=== PATIENT | female | born 1940 | race Caucasian/White ===

== ENCOUNTER → 2017-10-20 | Outpatient (CLI) | payer MEDICARE, BC ==
[2017-10-20 17:35] LABS: Calcium 9.3 mg/dL (8.4-10.2)
== END | disposition home or self-care (01) ==
LOC: LABMAIN 14:50
PROVIDERS: ATTEND Internal Medicine Nephrology
DX: N18.3 Chronic kidney disease, stage 3 (moderate) (principal)
CPT/HCPCS: 36415; 80048

== ENCOUNTER → 2017-11-21 | Outpatient (CLI) | payer MEDICARE, BC ==
[2017-11-21 16:36] LABS: Basophils # (A) 0.1 k/uL (0-0.2); Basophils % (A) 1 %; Eosinophils # (A) 0.2 k/uL (0-0.7); Eosinophils % (A) 2 %; HCT 36.4 % (34.0-46.0); Lymphocytes # (A) 2.3 k/uL (1.0-4.8); Lymphocytes % (A) 31 %; MCH 30.2 pg (25.0-35.0); MCHC 32.9 g/dL (31.0-37.0); Monocytes # (A) 0.4 k/uL (0-1.0); Monocytes % (A) 6 %; Neutrophils # (A) 4.3 k/uL (1.3-7.7); Neutrophils % (A) 58 %; Platelet Count 229 k/uL (150-450); RBC 3.96 m/uL (3.80-5.40); RDW 13.5 % (11.5-15.5); WBC 7.5 k/uL (3.8-10.6)
[2017-11-21 16:43] LABS: Appearance,Urine Clear (Clear); Bilirubin,Urine Negative (Negative); Blood,Urine Negative (Negative); Color,Urine Light Yellow; Glucose,Urine (UA) Negative (Negative); Ketones,Urine Negative (Negative); Leukocyte Esterase,Urine Large (Negative); Mucus,Urine Rare /hpf; Nitrite,Urine Negative (Negative); Protein,Urine Negative (Negative); RBC,Urine 1 /hpf (0-5); Specific Gravity,Urine 1.007 (1.001-1.035); Squamous Epithelial Cell,Urine 3 /hpf (0-4); Urobilinogen,Urine <2.0 mg/dL (<2.0); WBC,Urine 3 /hpf (0-5)
[2017-11-21 16:54] LABS: Calcium 9.2 mg/dL (8.4-10.2); Magnesium 1.9 mg/dL (1.6-2.3); Phosphorus 5.2 mg/dL (2.5-4.5); Uric Acid 7.8 mg/dL (3.7-7.4)
[2017-11-22 01:20] LABS: Iron Saturation 31.23 (12.00-45.00)
[2017-11-22 01:29] LABS: Vitamin D 25 Hydroxy 46.8 ng/mL (30.0-100.0)
== END | disposition home or self-care (01) ==
LOC: LABWHC1 16:02
PROVIDERS: ATTEND Internal Medicine Nephrology
DX: N18.3 Chronic kidney disease, stage 3 (moderate) (principal); D63.1 Anemia in chronic kidney disease; E55.9 Vitamin D deficiency, unspecified; N25.81 Secondary hyperparathyroidism of renal origin; M10.9 Gout, unspecified; N39.0 Urinary tract infection, site not specified
CPT/HCPCS: 36415; 80048; 81001; 82306; 82728; 83540; 83550; 83735; 83970; 84100; 84550; 85025

== ENCOUNTER → 2018-04-08 | Outpatient (CLI) | payer MEDICARE, BC ==
[2018-04-08 14:38] LABS: Appearance,Urine Clear (Clear); Basophils # (A) 0.1 k/uL (0-0.2); Basophils % (A) 1 %; Bilirubin,Urine Negative (Negative); Blood,Urine Negative (Negative); Color,Urine Light Yellow; Eosinophils # (A) 0.2 k/uL (0-0.7); Eosinophils % (A) 3 %; Glucose,Urine (UA) Negative (Negative); HCT 38.5 % (34.0-46.0); HGB 12.4 gm/dL (11.4-16.0); Ketones,Urine Negative (Negative); Leukocyte Esterase,Urine Small (Negative); Lymphocytes # (A) 2.1 k/uL (1.0-4.8); Lymphocytes % (A) 28 %; MCH 30.3 pg (25.0-35.0); MCHC 32.2 g/dL (31.0-37.0); MCV 94.1 fL (80.0-100.0); Mean Platelet Volume 6.9; Monocytes # (A) 0.4 k/uL (0-1.0); Monocytes % (A) 5 %; Mucus,Urine Rare /hpf; Neutrophils # (A) 4.5 k/uL (1.3-7.7); Neutrophils % (A) 60 %; Nitrite,Urine Negative (Negative); Platelet Count 257 k/uL (150-450); Protein,Urine Negative (Negative); Specific Gravity,Urine 1.009 (1.001-1.035); Squamous Epithelial Cell,Urine 1 /hpf (0-4); Urobilinogen,Urine <2.0 mg/dL (<2.0); WBC 7.5 k/uL (3.8-10.6); WBC,Urine 1 /hpf (0-5)
[2018-04-08 14:40] LABS: Anion Gap 9 mmol/L; Blood Urea Nitrogen 44 mg/dL (7-17); Calcium 9.3 mg/dL (8.4-10.2); Carbon Dioxide 24 mmol/L (22-30); Chloride 107 mmol/L (98-107); Glucose 176 mg/dL (74-99); Phosphorus 5.2 mg/dL (2.5-4.5); Potassium 4.8 mmol/L (3.5-5.1); Sodium 140 mmol/L (137-145); Uric Acid 8.4 mg/dL (3.7-7.4)
[2018-04-08 18:47] LABS: Iron Saturation 23.05 (12.00-45.00)
[2018-04-08 18:55] LABS: Parathyroid Hormone Intact 136.2 pg/mL (14.0-72.0)
[2018-04-08 18:56] LABS: Vitamin D 25 Hydroxy 57.8 ng/mL (30.0-100.0)
== END | disposition home or self-care (01) ==
LOC: LABWHC1 13:24
PROVIDERS: ATTEND Internal Medicine Nephrology
DX: N18.3 Chronic kidney disease, stage 3 (moderate) (principal); D63.1 Anemia in chronic kidney disease; N25.81 Secondary hyperparathyroidism of renal origin; M10.9 Gout, unspecified; N39.0 Urinary tract infection, site not specified
CPT/HCPCS: 36415; 80048; 81001; 82306; 82728; 83540; 83550; 83735; 83970; 84100; 84550; 85025

== ENCOUNTER 2019-07-27 16:33 | Emergency (ER) | payer MEDICARE, BC ==
[2019-07-27 16:48] VITALS: RESP 20; TEMP 97.6
[2019-07-27] MEDS ORDERED: LIDOCAINE 1% INJ 10MG/ML (20 ML MDV) SQ ONE (16:59)
[2019-07-27] MEDS ORDERED: DIPH,PERTUS(ACELL)TETVAC-LF 0.5 ML VIAL IM ONE (16:59)
[2019-07-27] MEDS ORDERED: ceFAZolin 1,000 MG VIAL (IM USE) IM STA (16:59)
--- NOTE | 2019-07-27 17:00 | ED ---
Fall HPI - General Chief Complaint: Fall Stated Complaint: Fall Time Seen by Provider: 07/27/19 16:49 Source: EMS Mode of arrival: EMS - History of Present Illness Initial Comments: 78-year-old male presenting today for chief complaint of fall. Patient states that she was in the barn when she tripped over an object. She states she fell forward hitting her face. She states she lacerated her nose and right hand. Denies LOC. Denies anticoagulation therapy. patient denies headache, dizziness, nausea, vomiting, visual changes, neck pain, weakness of the UE or LE b/l. Patient denies hip or back pain. Patient denies any other complaints. She states she tripped over something denies feeling off balance, lightheaded prior to falling. Patient appears well on arrival. Bleeding controlled. Denies anticoagulation therapy use. - Related Data Previous Rx's Medication Instructions Recorded HYDROcodone/APAP 5-325MG [Star 5] 1 each PO Q4HR PRN #15 tab 05/30/15 Amoxic-Pot Clav 875-125Mg 1 tab PO Q12HR 7 Days #14 tab 07/27/19 [Augmentin 875-125] Allergies Allergy/AdvReac Type Severity Reaction Status Date / Time No Known Allergies Allergy Verified 05/30/15 16:55 Review of Systems ROS Statement: Those systems with pertinent positive or pertinent negative responses have been documented in the HPI. ROS Other: All systems not noted in ROS Statement are negative. Past Medical History Past Medical History: Diabetes Mellitus, Hypertension, Renal Disease History of Any Multi-Drug Resistant Organisms: None Reported Past Surgical History: Cholecystectomy, Orthopedic Surgery Past Psychological History: No Psychological Hx Reported Smoking Status: Never smoker Past Alcohol Use History: Daily Past Drug Use History: None Reported General Exam - General Exam Comments Initial Comments: General: The patient is awake and alert, in no distress Eye: +3mm pupils are equal, round and reactive to light, extra-ocular movements are intact. No nystagmus. There is normal conjunctiva bilaterally. No signs of icterus. Ears, nose, mouth and throat: There are moist mucous membranes and no oral lesions. No septal hematoma or signficant displacement, no active bleeding. no bleeding in posterior oropharynx. Neck: The neck is supple, there is no tenderness or JVD. No midline tenderness with patient the cervical spine full range of motion without pain at the cervical spine. Cardiovascular: There is a regular rate and rhythm. No murmur, rub or gallop is appreciated. Respiratory: Lungs are clear to auscultation, respirations are non-labored, breath sounds are equal. No wheezes, stridor, rales, or rhonchi. Gastrointestinal: Soft, non-distended, non-tender abdomen without masses or organomegaly noted. There is no rebound or guarding present. Musculoskeletal: Normal inspection of the thoracic and lumbar spine no midline tenderness. Normal ROM, no tenderness at the wrists, elbows, shoulders, hips, knees, or ankles. Strength 5/5. Sensation intact. Radial pulses equal bilateral ly 2+. Neurological: A&O x 3. CN II-XII intact grossly, There are no obvious motor or sensory deficits. Coordination appears grossly intact. Speech is normal. Skin: Skin is warm and dry and no [id number] laceration over nasal bridge, mainly lineaer vertical orientation, no exposure of bone, no evidence of FB. semilunar skin flap on the ulnar aspect of the palm of the hand mid hand. No bleeding or foreign body. Psychiatric: Cooperative, appropriate mood & affect, normal judgment. Limitations: no limitations Course Vital Signs 07/27/19 07/27/19 07/27/19 16:38 16:48 17:48 Temperature 97.6 F Pulse Rate 70 Respiratory 20 20 20 Rate Blood Pressure 187/83 O2 Sat by Pulse 98 Oximetry 07/27/19 07/27/19 18:48 18:54 Temperature Pulse Rate 64 Respiratory 20 20 Rate Blood Pressure 175/72 O2 Sat by Pulse 94 L Oximetry Procedures - Laceration Laceration #1 Consent Obtained: verbal consent Indication: laceration Site: face (noaw) Size (cm): 3 Description: linear Depth: simple, single layer Anesthetic Used: lidocaine 1% Anesthesia Technique: local infiltration Amount (mls): 2 Pre-repair: wound explored, irrigated extensively, deep structures intact Type of Sutures: nylon Size of Sutures: 6-0 Number of Sutures: 7 Technique: simple, interrupted Patient Tolerated Procedure: well, no complications Additional Comments: irrigated, cleansed with idodine and explored prior to closure Laceration #2 Consent Obtained: verbal consent Indication: laceration Site: hand Size (cm): 2 Description: linear, flap, irregular, clean Depth: simple, single layer Anesthetic Used: lidocaine 1% Anesthesia Technique: local infiltration Amount (mls): 2 Pre-repair: wound explored, irrigated extensively, deep structures intact Type of Sutures: nylon Size of Sutures: 5-0 Number of Sutures: 3 Technique: simple, interrupted Patient Tolerated Procedure: well, no complications Medical Decision Making - Medical Decision Making 78 year old female presenting for fall. Patient had sustained mostly trauma to her nose. There was evidence of a fracture of the nasal bridge with some mild septal deviation on imaging studies. Patient is no evidence of septal hematoma physical examination. Patient's laceration was repaired. Patient had no cervical spine fractures changes most likely chronic malalignment. Patient has no midline tenderness to palpation of the cervical spine. No raccoon or Varela sign. Patient has no evidence of scalp hematomas. No acute intracranial process. Patient denies any complaints of chest abdomen or back. No midline tenderness with patient the thoracic or lumbar spine. No tenderness with patient the hip patient is able toward. Patient is no focal neurological deficits. After laceration repair patient continues to appear well she's complaining of slight headache and Tylenol No. 3 starter pack. Appropriate use was discussed at this time after reviewing imaging studies [place] provider Dr. hoyos i feel patient is stable for discharge with pcp f/u and return parameters for suture removal/complications/worsening symptoms as discussed. Disposition Clinical Impression: Fall, Nasal bone fracture, Head injury, Nasal laceration, Hand laceration Disposition: HOME SELF-CARE Condition: Good Instructions (If sedation given, give patient instructions): Care For Your Stitches (ED), Fall Prevention for Older Adults (ED), Facial Laceration (ED) Additional Instructions: Please use medication as discussed. Please follow-up with family doctor in the next 2 days, recommend returning for removal of suture in 5-6 days for the nose and 7-10 days for the hand. Leaving suture in longer and result in additional scarring. Watch for redness, drainage or increasing pain. Please be aware that due to nasal fracture patient may develop bruising below each eye. Please return to emergency room if the symptoms increase or worsen or for any other concerns. Prescriptions: Amoxic-Pot Clav 875-125Mg [Augmentin 875-125] 1 tab PO Q12HR 7 Days #14 tab Is patient prescribed a controlled substance at d/c from ED?: No Referrals: Nonstaff,Physician [Primary Care Provider] - 1-2 days Greg Mayo MD [STAFF PHYSICIAN] - 1-2 days Time of Disposition: 18:49
--- NOTE | 2019-07-27 17:44 | XR ---
EXAMINATION TYPE: XR hand complete RT DATE OF EXAM: 07/27/2019 CLINICAL HISTORY: Right hand pain after fall TECHNIQUE: Frontal, lateral and oblique images of the right hand are obtained. COMPARISON: None. FINDINGS: There is no acute fracture/dislocation evident in the right hand. The joint spaces in the right hand appear aligned with mild joint space narrowing of the distal interphalangeal joints and fi rst carpometacarpal joint. Findings are most pronounced of the fifth distal interphalangeal joint wit h subchondral cyst formation. There is diffuse osseous demineralization. The overlying soft tissue a ppears unremarkable. IMPRESSION: There is no acute fracture or dislocation in the right hand. 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
--- NOTE | 2019-07-27 17:54 | CT ---
EXAMINATION TYPE: CT brain cspine wo con, CT facial bones wo con DATE OF EXAM: 07/27/2019 COMPARISON: NONE HISTORY: Follow subsequent head and neck pain. CT DLP: 1156 mGycm. Automated Exposure Control for Dose Reduction was Utilized. TECHNIQUE: CT scan of the usual bones, head and cervical spine are performed without contrast. FINDINGS: There is no acute intracranial hemorrhage or midline shift identified. There is diffuse v entricular and sulcal prominence consistent with diffuse age-related cerebral atrophy. Partially emp ty sella turcica is seen. There is low-attenuation in the periventricular white matter consistent wit h chronic small vessel ischemic change. The globes are intact with scant mucosal thickening is seen in the left maxillary sinus. Posterior nasopharyngeal airway and the left demonstrates secretions. Th ere is a laceration overlying the nasal bone in the soft tissues with minimal rightward nasal septal deviation. There is a subtle nondisplaced fracture of the midline nasal bone and right nasal bone and coronal image 15 of the facial bones examination. Left-sided nikhil bullosa is incidentally seen. Nu merous punctate calcifications in the soft tissues are overwhelmingly benign. Cervical spine is visualized in its entirety from C1 through upper thoracic levels and demonstrates s atisfactory alignment and vertebral body heights without acute fracture. There is minimal grade 1 ant erolisthesis of C4 on C5 without facet malalignment. This is likely on a degenerative basis. There is minimal retrolisthesis of C6 on C7 also likely on a degenerative basis. Mild degenerative change of the cervical spine. Prevertebral soft tissue appears within normal limits. The C1-C2 articulation i s unremarkable. Minimal emphysematous changes of the lung apices. Degenerative changes of the tempor omandibular joints are seen. IMPRESSION: 1. Soft tissue laceration over a nondisplaced subtle acute midline nasal bone fracture and fracture o f the right nasal bone. Secretions and/or hemorrhage are seen in the posterior left nasopharynx. Mini mal rightward nasal septal deviation. 2. There is no acute fracture or dislocation evident in the cervical spine. Multilevel malalignment i s likely on a degenerative basis. Overall mild degenerative change of the cervical spine. 3. No acute intracranial hemorrhage, mass effect, or midline shift is seen.
[2019-07-27] MEDS ORDERED: ACET/COD 300 MG/30 MG STARTER PACK 6 TAB BTL PO STA (18:47)
[2019-07-27 18:54] VITALS: BP 175/72; PULSE 64
== END 2019-07-27 19:13 | disposition home or self-care (01) ==
LOC: EC 16:33
DX: S02.2XXB Fracture of nasal bones, initial encounter for open fracture (principal); J34.2 Deviated nasal septum; S61.411A Laceration without foreign body of right hand, initial encounter; Z23 Encounter for immunization; W01.0XXA Fall on same level from slipping, tripping and stumbling without subsequent striking against object, initial encounter; Y92.71 Barn as the place of occurrence of the external cause
CPT/HCPCS: 73130; 72125; 70486; 70450; 90715; 99284; 12013; 12001; 96372; 90471; J0690; J2001

== ENCOUNTER 2021-03-19 14:23 | Emergency (ER) | payer BC, MEDICARE ==
--- NOTE | 2021-03-19 15:45 | ED ---
General Adult HPI - General Chief complaint: Urogenital Stated complaint: UTI Time Seen by Provider: 03/19/21 15:30 Source: patient, RN notes reviewed, old records reviewed Mode of arrival: ambulatory Limitations: no limitations - History of Present Illness Initial comments: 80-year-old female, well appearing, alert and oriented 4, presents to the [facility] room with complaints of one day of frequent urination. She states that she's been using the bathroom frequently throughout the day today in small amounts only. She denies any burning, no nausea, vomiting, diarrhea or fevers. She does state that she has right flank pain. She has no history of kidney stones. She does have a history of chronic kidney disease and sees a spice blender Dr. Feliciano. She was there last week and they did do urinalysis. She states that they did tell her she had bacteria in her urine but she had no symptoms at that time. The patient also has a history of diabetes, hypertension and cholecystectomy. -: days(s) (1) Location: pelvis Associated Symptoms: other (Right flank pain) Treatments Prior to Arrival: none - Related Data Previous Rx's Medication Instructions Recorded Sulfamethox-Tmp 800-160Mg [Bactrim 1 each PO Q12HR 10 Days #20 tab 03/19/21 Ds] Allergies Allergy/AdvReac Type Severity Reaction Status Date / Time No Known Allergies Allergy Verified 03/19/21 17:26 Review of Systems ROS Statement: Those systems with pertinent positive or pertinent negative responses have been documented in the HPI. ROS Other: All systems not noted in ROS Statement are negative. Past Medical History Past Medical History: Diabetes Mellitus, Hypertension, Renal Disease History of Any Multi-Drug Resistant Organisms: None Reported Past Surgical History: Cholecystectomy, Orthopedic Surgery Past Psychological History: No Psychological Hx Reported Smoking Status: Never smoker Past Alcohol Use History: Daily Past Drug Use History: None Reported General Exam Limitations: no limitations General appearance: alert, in no apparent distress Head exam: Present: atraumatic, normocephalic, normal inspection Eye exam: Present: normal appearance, EOMI ENT exam: Present: normal exam, normal oropharynx, mucous membranes moist Neck exam: Present: normal inspection, full ROM. Absent: tenderness, meningismus, lymphadenopathy Respiratory exam: Present: normal lung sounds bilaterally. Absent: respiratory distress, wheezes, rales, rhonchi, stridor Cardiovascular Exam: Present: normal rhythm, bradycardia, normal heart sounds. Absent: systolic murmur, diastolic murmur, rubs, gallop, clicks GI/Abdominal exam: Present: soft, normal bowel sounds. Absent: distended, tenderness, guarding, rebound, rigid Extremities exam: Present: normal inspection, full ROM, normal capillary refill. Absent: tenderness, pedal edema, joint swelling, calf tenderness Back exam: Present: normal inspection, full ROM, CVA tenderness (R). Absent: tenderness, CVA tenderness (L), rash noted Neurological exam: Present: alert, oriented X3, normal gait Psychiatric exam: Present: normal affect, normal mood Skin exam: Present: warm, dry, intact, normal color. Absent: rash, cyanosis, diaphoretic Course Vital Signs 03/19/21 14:42 Temperature 97 F L Pulse Rate 56 L Respiratory 18 Rate Blood Pressure 128/64 O2 Sat by Pulse 98 Oximetry Medical Decision Making - Medical Decision Making Patient presents to the emergency room with frequent urination in small amounts that started today. She did see her spice blender this week and the urinalysis she had no symptoms at that time. She did have bacteria in the urine at that time. Her symptoms just started today but she denies any fever. She does complain of right flank pain. Ultrasound of the kidneys shows left kidney with some cortical thinning consistent with atrophy. There is no evidence of renal mass or obstruction. The right kidney has no evidence of hydronephrosis. The patient does not have a fever. She denies any nausea vomiting or diarrhea. Urinalysis was cloudy with trace protein and large leukocyte esterase 164 WBCs with moderate bacteria. She was treated for urinary tract infection with Bactrim. She states that she has had Bactrim in the past for her urinary tract infections and has worked well. She was also directed to follow up with her primary care doctor next week for reevaluation. Return to the emergency room with any new or worsening symptoms. Case was discussed with Dr. Styles. - Lab Data Lab Results 03/19/21 Range/Units 15:45 Urine Color Light Yellow Urine Appearance Cloudy H (Clear) Urine pH 5.0 (5.0-8.0) Ur Specific [place] 1.014 (1.001-1.035) Urine Protein Trace H (Negative) Urine Glucose (UA) Negative (Negative) Urine Ketones Negative (Negative) Urine Blood Negative (Negative) Urine Nitrite Negative (Negative) Urine Bilirubin Negative (Negative) Urine Urobilinogen <2.0 (<2.0) mg/dL Ur Leukocyte Esterase Large H (Negative) Urine RBC 6 H (0-5) /hpf Urine WBC 164 H (0-5) /hpf Urine WBC Clumps Moderate H (None) /hpf Ur Squamous Epith Cells 4 (0-4) /hpf Urine Bacteria Moderate H (None) /hpf Urine Mucus Rare H (None) /hpf Disposition Clinical Impression: Urinary tract infection Disposition: HOME SELF-CARE Condition: Good Instructions (If sedation given, give patient instructions): Urinary Tract Infection in Women (ED) Additional Instructions: Take antibiotics twice a day for the next 10 days. Follow-up with the primary care doctor next week. Return to the emergency room with any new or worsening symptoms. Prescriptions: Sulfamethox-Tmp 800-160Mg [Bactrim Ds] 1 each PO Q12HR 10 Days #20 tab Is patient prescribed a controlled substance at d/c from ED?: No Referrals: Nonstaff,Physician [Primary Care Provider] - 1-2 days Time of Disposition: 17:23
--- NOTE | 2021-03-19 16:34 | US ---
EXAMINATION TYPE: US kidneys/renal and bladder DATE OF EXAM: 03/19/2021 COMPARISON: NONE CLINICAL HISTORY: flank pain. Possible UTI EXAM MEASUREMENTS: Right Kidney: 9.8 x 4.7 x 5.0 cm Left Kidney: 8.6 x 4.4 x 3.6 cm Right Kidney: wnl, no evidence of hydro Left Kidney: Small in size, no evidence of hydro Bladder: wnl Bilateral Jets seen: No IMPRESSION: Left kidney shows some cortical thinning. This is consistent with atrophy. No evidence of renal mass or obstruction.
[2021-03-19 16:58] LABS: Appearance,Urine Cloudy (Clear); Bacteria,Urine Moderate /hpf; Bilirubin,Urine Negative (Negative); Blood,Urine Negative (Negative); Color,Urine Light Yellow; Glucose,Urine (UA) Negative (Negative); Ketones,Urine Negative (Negative); Leukocyte Esterase,Urine Large (Negative); Mucus,Urine Rare /hpf; Nitrite,Urine Negative (Negative); Protein,Urine Trace (Negative); RBC,Urine 6 /hpf (0-5); Specific Gravity,Urine 1.014 (1.001-1.035); Squamous Epithelial Cell,Urine 4 /hpf (0-4); Urobilinogen,Urine <2.0 mg/dL (<2.0); WBC,Urine 164 /hpf (0-5)
[2021-03-19] MEDS ORDERED: SULFAMETHOX-TMP 800-160MG 1 EACH TAB PO STA (17:22)
[2021-03-19] MEDS ORDERED: SULFAMETH-TMP DS STARTER PACK 2 TAB BTL PO STA (17:22)
[2021-03-19 17:38] VITALS: BP 142/56; PULSE 50; RESP 20; TEMP 98.1
== END 2021-03-19 17:37 | disposition home or self-care (01) ==
LOC: EC 14:23
DX: N39.0 Urinary tract infection, site not specified (principal); E11.9 Type 2 diabetes mellitus without complications; I10 Essential (primary) hypertension; Z72.89 Other problems related to lifestyle; Z79.84 Long term (current) use of oral hypoglycemic drugs; Z79.899 Other long term (current) drug therapy
CPT/HCPCS: 76770; 81001; 87077; 87086; 87186; 99284

== ENCOUNTER → 2022-02-03 | Outpatient (CLI) | payer MEDICARE ==
[2022-02-03 16:39] LABS: Creatinine,Urine Random 138.9 mg/dL; Protein/Creatinine Ratio,Urine 0.065
[2022-02-03 22:25] LABS: Appearance,Urine Cloudy (Clear); Bilirubin,Urine Negative (Negative); Blood,Urine Negative (Negative); Color,Urine Yellow (Yellow); Ketones,Urine Negative (Negative); Nitrite,Urine Negative (Negative); Specific Gravity,Urine 1.014 (1.001-1.030); Urobilinogen,Urine 0.2 (0.2,1.0)
[2022-02-03 22:39] LABS: Basophils # (A) 0.05 X 10*3/uL (0.00-0.10); Basophils % (A) 0.6 %; Eosinophils # (A) 0.23 X 10*3/uL (0.04-0.35); Eosinophils % (A) 2.8 %; HCT 33.7 % (37.2-46.3); HGB 11.1 g/dL (12.0-15.0); Immature Grans, Automated 0.5 %; Lymphocytes # (A) 2.13 X 10*3/uL (0.90-5.00); Lymphocytes % (A) 26.1 %; MCH 30.4 pg (27.0-32.0); MCHC 32.9 g/dL (32.0-37.0); MCV 92.3 fL (80.0-97.0); Monocytes # (A) 0.69 X 10*3/uL (0.20-1.00); Monocytes % (A) 8.5 %; NRBC Per 100 WBC 0 /100 WBCS (0.0-0.0); Neutrophils # (A) 5.01 X 10*3/uL (1.80-7.70); Neutrophils % (A) 61.5 %; Platelet Count 219 X 10*3/uL (140-440); RBC 3.65 X 10*6/uL (4.10-5.20); WBC 8.15 X 10*3/uL (4.50-10.00)
[2022-02-03 23:30] LABS: Bacteria,Urine None Seen /HPF (None Seen)
[2022-02-04 00:10] LABS: % Iron Saturation 22.31 (12.00-45.00); African American GFR (CKD) 23.2 (60.0-200.0); Anion Gap 13.6 mmol/L (10.00-18.00); BUN/Creat Ratio 26.02 Ratio (12.00-20.00); Blood Urea Nitrogen 58.8 mg/dL (9.0-27.0); Calcium 9.3 mg/dL (8.7-10.3); Carbon Dioxide 21.2 mmol/L (20.0-27.5); Magnesium 2.2 mg/dL (1.5-2.4); Phosphorus 4.5 mg/dL (2.4-5.1); Potassium 5.1 mmol/L (3.5-5.5); Uric Acid 8.6 mg/dL (2.9-7.7)
[2022-02-04 00:22] LABS: Albumin 3.9 g/dL (3.8-4.9)
== END | disposition home or self-care (01) ==
LOC: LABWHC1 15:34
PROVIDERS: ATTEND Internal Medicine Nephrology
DX: N25.81 Secondary hyperparathyroidism of renal origin (principal); R82.81 Pyuria; N18.4 Chronic kidney disease, stage 4 (severe)
CPT/HCPCS: 36415; 80048; 81001; 82040; 82306; 82570; 82728; 83540; 83550; 83735; 83970; 84100; 84156; 84550; 85025

== ENCOUNTER 2023-08-04 12:30 | Inpatient (IN) | payer MEDICARE ==
[2023-08-04 12:54] LABS: Basophils # (A) 0.1 k/uL (0-0.2); Basophils % (A) 1 %; Eosinophils # (A) 0.6 k/uL (0-0.7); Eosinophils % (A) 6 %; HCT 35.7 % (34.0-46.0); HGB 11.2 gm/dL (11.4-16.0); Lymphocytes # (A) 1.6 k/uL (1.0-4.8); Lymphocytes % (A) 15 %; MCH 29.9 pg (25.0-35.0); MCHC 31.3 g/dL (31.0-37.0); MCV 95.4 fL (80.0-100.0); Mean Platelet Volume 8.1; Monocytes # (A) 0.5 k/uL (0-1.0); Monocytes % (A) 5 %; Neutrophils # (A) 7.6 k/uL (1.3-7.7); Neutrophils % (A) 72 %; Platelet Count 380 k/uL (150-450); RBC 3.74 m/uL (3.80-5.40); RDW 13.7 % (11.5-15.5); WBC 10.5 k/uL (3.8-10.6)
--- NOTE | 2023-08-04 12:55 | ED ---
General Adult HPI - General Chief complaint: Syncope Stated complaint: Syncope Time Seen by Provider: 08/04/23 12:32 Source: patient, family, EMS Mode of arrival: EMS Limitations: no limitations - History of Present Illness Initial comments: Patient presents to the ED by ambulance for evaluation with her and daughter/healthcare POA at bedside. Daughter states that the patient has had 2 syncopal episodes today. Daughter states that the first episode occurred as she was getting the patient onto the toilet, and she states that the patient fell down at that time, but did not injure/hit her head. Daughter states that the second episode happened shortly thereafter as they were trying to clean the patient up in the shower, and she states that the patient did not fall or injure herself at that time. Patient has been placed in a c-collar by EMS. EMS reports that the patient's heart rate was in the 30s while in the ambulance, but her heart rate is currently in the 50s on the quality assurance monitor final. Daughter states that the patient was recently diagnosed with atrial fibrillation, and she has been started on Eliquis anticoagulation therapy. Daughter states the patient is on atenolol, and she did receive a dose of it today. Patient currently denies having any symptoms or complaints. Patient denies having any pain, fever or chills, headache, focal numbness/weakness/neurodeficit, neck/back/extremity pain, chest pain, dyspnea, cough or cold symptoms, palpitations, dizziness currently, abdominal pain, nausea/vomiting/diarrhea, bloody or melanotic stool, dysuria or urinary symptoms, leg or calf swelling or pain, or any other symptoms or complaints. Daughter states that the patient was recently discharged from [facility] after being diagnosed with perforated diverticulitis, but she states that she has been treated with IV and oral antibiotics, and patient states that her abdominal pain has now resolved. - Related Data Home Medications Medication Instructions Recorded Confirmed Acetaminophen [Tylenol] 650 mg PO ONCE PRN 03/19/21 03/19/21 Atorvastatin [Lipitor] 40 mg PO HS 03/19/21 03/19/21 Ergocalciferol [Vitamin D2 (1250 1,250 mcg PO Q14D 03/19/21 03/19/21 Mcg = 14032 Iu)] Escitalopram [Lexapro] 10 mg PO HS 03/19/21 03/19/21 Ezetimibe [Zetia] 10 mg PO DAILY 03/19/21 03/19/21 Furosemide [Lasix] 20 mg PO Q48H 03/19/21 03/19/21 Furosemide [Lasix] 40 mg PO Q48H 03/19/21 03/19/21 Magnesium Oxide 400 mg PO DAILY 03/19/21 03/19/21 Methocarbamol (Unknown Strength 1 tab PO DAILY PRN 03/19/21 03/19/21 allopurinoL [Zyloprim] 100 mg PO DAILY 03/19/21 03/19/21 atenoloL [Tenormin] 25 mg PO DAILY 03/19/21 03/19/21 calcitrioL 0.25 mcg PO Q48H 03/19/21 03/19/21 glipiZIDE [Glucotrol] 5 mg PO BID 03/19/21 03/19/21 lisinopriL [Zestril] 5 mg PO HS 03/19/21 03/19/21 rOPINIRole HCL [Requip] 4 mg PO HS 03/19/21 03/19/21 Previous Rx's Medication Instructions Recorded Sulfamethox-Tmp 800-160Mg [Bactrim 1 each PO Q12HR 10 Days #20 tab 03/19/21 Ds] Sulfamethox-Tmp 800-160Mg [Bactrim 1 tab PO Q12HR 10 Days #20 tab 06/28/22 DS 800-160 mg] Allergies Allergy/AdvReac Type Severity Reaction Status Date / Time No Known Allergies Allergy Verified 08/04/23 12:38 Review of Systems ROS Statement: Those systems with pertinent positive or pertinent negative responses have been documented in the HPI. ROS Other: All systems not noted in ROS Statement are negative. Past Medical History Past Medical History: Atrial Fibrillation, Diabetes Mellitus, Hypertension, Renal Disease History of Any Multi-Drug Resistant Organisms: None Reported Past Surgical History: Cholecystectomy, Orthopedic Surgery Past Psychological History: No Psychological Hx Reported Smoking Status: Never smoker Past Alcohol Use History: Daily Past Drug Use History: None Reported General Exam Limitations: no limitations General appearance: alert, in no apparent distress Head exam: Present: atraumatic, normocephalic Eye exam: Present: normal appearance, PERRL, EOMI ENT exam: Present: mucous membranes moist, TM's normal bilaterally Neck exam: Present: normal inspection, full ROM, other (Trachea is in midline; c-collar was clinically cleared myself). Absent: tenderness Respiratory exam: Present: normal lung sounds bilaterally. Absent: respiratory distress, wheezes, rales, rhonchi, stridor, chest wall tenderness Cardiovascular Exam: Present: normal rhythm, bradycardia, normal heart sounds, other (Normal radial pulses bilaterally) GI/Abdominal exam: Present: soft. Absent: distended, tenderness, guarding Extremities exam: Present: full ROM, other (Pelvis is stable and nontender). Absent: tenderness, pedal edema, calf tenderness Back exam: Present: normal inspection. Absent: tenderness Neurological exam: Present: alert, oriented X3, CN II-XII intact. Absent: motor sensory deficit Psychiatric exam: Present: normal affect Skin exam: Present: warm, dry, intact, normal color Course Vital Signs 08/04/23 08/04/23 12:32 12:38 Temperature 97.1 F L Pulse Rate 53 L Pulse Rate [ 53 L Spring Repairer Helper Hand ] Respiratory 18 Rate Blood Pressure 128/60 O2 Sat by Pulse 98 Oximetry - Reevaluation(s) Reevaluation #1: 08/04/23 13:27 Case, H&P, test results and ED management thus far were discussed with Dr. Head. She accepts hospital admission. She agrees with cardiology consultation. She has no further recommendations at this time. 08/04/23 13:32 Patient remains in what appears to be a sinus rhythm on the quality assurance monitor final with heart rate in the 50s. Patient continues to deny having any dizziness or symptoms while in the ED. Patient remains alert and breathing comfortably. Patient and family are aware of the patient's test results, and they all agree with hospital admission at this time. EKG Findings - EKG Comments: EKG Findings:: ED physician interpretation (interpreted by me): Uncertain rhythm, but suspect sinus bradycardia with first-degree AV block, ventricular rate of 52 bpm, normal QRS duration, normal QT interval, normal axis, no ST or T wave abnormality Medical Decision Making - Medical Decision Making Was pt. sent in by a medical professional or institution (, PA, HEADER BOSS, urgent care, hospital, or senior living...) When possible be specific @ -No Did you speak to anyone other than the patient for history (EMS, parent, family, police, friend...)? What history was obtained from this source @ -History was also provided by the patient's daughter/healthcare POA. Did you review nursing and triage notes (agree or disagree)? Why? @ -I reviewed and agree with nursing and triage notes Were old charts reviewed (outside hosp., previous admission, EMS record, old EKG, old radiological studies, urgent care reports/EKG's, senior living records)? Report findings @ -No old charts were reviewed Differential Diagnosis (chest pain, altered mental status, abdominal pain women, abdominal pain men, vaginal bleeding, weakness, fever, dyspnea, syncope, headache, dizziness, GI bleed, back pain, seizure, CVA, palpatations, mental health, musculoskeletal)? @ -Differential Syncope: Valvular disease, hypertrophic cardiomyopathy, tamponade, tachycardia, bradycardia, dysrhythmia, NV, hypovolemia, hemorrhage, anemia, seizure, hypoglycemia, medication reaction, this is not meant to be an all-inclusive list. EKG interpreted by me (3pts min.). @ -As above X-rays interpreted by me (1pt min.). @ -Chest x-ray was reviewed myself and shows no acute cardiopulmonary abnormality. I agree with the radiologist's interpretation as above. CT interpreted by me (1pt min.). @ -None done U/S interpreted by me (1pt. min.). @ -None done What testing was considered but not performed or refused? (CT, X-rays, U/S, labs)? Why? @ -None What meds were considered but not given or refused? Why? @ -None Did you discuss the management of the patient with other professionals (professionals i.e. , PA, HEADER BOSS, lab, RT, psych nurse, forensic social worker, scrap preparation supervisor, teacher, client sales and service officer, case management director)? Give summary @ -As above. Was smoking cessation discussed for >3mins.? @ -No Was critical care preformed (if so, how long)? @ -Yes, for 30 minutes. Were there social determinants of health that impacted care today? How? (Homelessness, low income, unemployed, alcoholism, drug addiction, transportation, low edu. Level, literacy, decrease access to med. care, senior care, rehab)? @ -No Was there de-escalation of care discussed even if they declined (Discuss DNR or withdrawal of care, Hospice)? DNR status @ -No What co-morbidities impacted this encounter? (DM, HTN, Smoking, COPD, CAD, Cancer, CVA, ARF, Chemo, Hep., AIDS, mental health diagnosis, sleep apnea, morbid obesity)? @ -Atrial fibrillation Was patient admitted / discharged? Hospital course, mention meds given and route, prescriptions, significant lab abnormalities, going to OR and other pertinent info. @ -Patient has been in what appears to be a sinus rhythm with first-degree AV block on the quality assurance monitor final while in the ED. Patient's heart rate remains in the 50s on the quality assurance monitor final. Patient's blood pressure remains normal/stable. Patient continues to deny having any dizziness or symptoms while in the ED. Patient's troponin is negative. Given she reportedly had 2 syncopal episodes today, and EMS reported that her heart rate was in the 30s, will admit the patient to the hospital for cardiac monitoring and cardiology consultation. Patient and family agree with this plan. Dr. Head has has accepted hospital admission. Undiagnosed new problem with uncertain prognosis? @ -No Drug Therapy requiring intensive monitoring for toxicity (Heparin, Nitro, Insulin, Cardizem)? @ -No Were any procedures done? @ -No Diagnosis/symptom? @ -Syncope and bradycardia Acute, or Chronic, or Acute on Chronic? @ -Acute Uncomplicated (without systemic symptoms) or Complicated (systemic symptoms)? @ -Default Side effects of treatment? @ -No Exacerbation, Progression, or Severe Exacerbation? @ -No Poses a threat to life or bodily function? How? (Chest pain, USA, NV, pneumonia, PE, COPD, DKA, ARF, appy, cholecystitis, CVA, Diverticulitis, Homicidal, Suicid al, threat to staff... and all critical care pts) @ -No - Lab Data Result diagrams: 08/04/23 12:46 08/04/23 12:46 Lab Results 08/04/23 08/04/23 08/04/23 Range/Units 12:46 12:46 12:46 WBC 10.5 (3.8-10.6) k/uL RBC 3.74 L (3.80-5.40) m/uL Hgb 11.2 L (11.4-16.0) gm/dL Hct 35.7 (34.0-46.0) % MCV 95.4 (80.0-100.0) fL MCH 29.9 (25.0-35.0) pg MCHC 31.3 (31.0-37.0) g/dL RDW 13.7 (11.5-15.5) % Plt Count 380 (150-450) k/uL MPV 8.1 Neutrophils % 72 % Lymphocytes % 15 % Monocytes % 5 % Eosinophils % 6 % Basophils % 1 % Neutrophils # 7.6 (1.3-7.7) k/uL Lymphocytes # 1.6 (1.0-4.8) k/uL Monocytes # 0.5 (0-1.0) k/uL Eosinophils # 0.6 (0-0.7) k/uL Basophils # 0.1 (0-0.2) k/uL PT 11.4 (10.0-12.5) sec INR 1.0 (<1.2) APTT 23.5 (22.0-30.0) sec Sodium 131 L (137-145) mmol/L Potassium 4.3 (3.5-5.1) mmol/L Chloride 102 (98-107) mmol/L Carbon Dioxide 20 L (22-30) mmol/L Anion Gap 9 mmol/L BUN 38 H (7-17) mg/dL Creatinine 1.58 H (0.52-1.04) mg/dL Est GFR (CKD-EPI)AfAm 36 (>60 ml/min/1.73 sqM) Est GFR (CKD-EPI)NonAf 31 (>60 ml/min/1.73 sqM) Glucose 231 H (74-99) mg/dL Calcium 8.3 L (8.4-10.2) mg/dL Magnesium 1.8 (1.6-2.3) mg/dL Total Bilirubin 0.5 (0.2-1.3) mg/dL AST 45 H (14-36) U/L ALT 39 H (4-34) U/L Alkaline Phosphatase 134 H (38-126) U/L Troponin I (0.000-0.034) ng/mL NT-Pro-B Natriuret Pep 1360 pg/mL Total Protein 5.6 L (6.3-8.2) g/dL Albumin 3.1 L (3.5-5.0) g/dL 08/04/23 Range/Units 12:46 WBC (3.8-10.6) k/uL RBC (3.80-5.40) m/uL Hgb (11.4-16.0) gm/dL Hct (34.0-46.0) % MCV (80.0-100.0) fL MCH (25.0-35.0) pg MCHC (31.0-37.0) g/dL RDW (11.5-15.5) % Plt Count (150-450) k/uL MPV Neutrophils % % Lymphocytes % % Monocytes % % Eosinophils % % Basophils % % Neutrophils # (1.3-7.7) k/uL Lymphocytes # (1.0-4.8) k/uL Monocytes # (0-1.0) k/uL Eosinophils # (0-0.7) k/uL Basophils # (0-0.2) k/uL PT (10.0-12.5) sec INR (<1.2) APTT (22.0-30.0) sec Sodium (137-145) mmol/L Potassium (3.5-5.1) mmol/L Chloride (98-107) mmol/L Carbon Dioxide (22-30) mmol/L Anion Gap mmol/L BUN (7-17) mg/dL Creatinine (0.52-1.04) mg/dL Est GFR (CKD-EPI)AfAm (>60 ml/min/1.73 sqM) Est GFR (CKD-EPI)NonAf (>60 ml/min/1.73 sqM) Glucose (74-99) mg/dL Calcium (8.4-10.2) mg/dL Magnesium (1.6-2.3) mg/dL Total Bilirubin (0.2-1.3) mg/dL AST (14-36) U/L ALT (4-34) U/L Alkaline Phosphatase (38-126) U/L Troponin I <0.012 (0.000-0.034) ng/mL NT-Pro-B Natriuret Pep pg/mL Total Protein (6.3-8.2) g/dL Albumin (3.5-5.0) g/dL - Radiology Data Chest x-ray: Chronic changes without evidence for acute pulmonary disease. Critical Care Time Critical Care Time: Yes Total Critical Care Time: 30 Disposition Clinical Impression: Syncope, Bradycardia Disposition: ADMITTED IP TO THIS [facility] Condition: Stable Is patient prescribed a controlled substance at d/c from ED?: No Referrals: Nonstaff,Physician [Primary Care Provider] - 1-2 days Time of Disposition: 13:28
[2023-08-04 13:02] LABS: Partial Thromboplastin Time 23.5 sec (22.0-30.0); Prothrombin Time 11.4 sec (10.0-12.5)
[2023-08-04 13:08] LABS: ALT 39 U/L (4-34); AST 45 U/L (14-36); African American GFR (CKD) 36 (>60 ml/min/1.73 sqM); Albumin 3.1 g/dL (3.5-5.0); Alkaline Phosphatase 134 U/L (38-126); Anion Gap 9 mmol/L; Blood Urea Nitrogen 38 mg/dL (7-17); Calcium 8.3 mg/dL (8.4-10.2); Carbon Dioxide 20 mmol/L (22-30); Chloride 102 mmol/L (98-107); Glucose 231 mg/dL (74-99); Magnesium 1.8 mg/dL (1.6-2.3); Non-African American GFR(CKD) 31 (>60 ml/min/1.73 sqM); Potassium 4.3 mmol/L (3.5-5.1); Sodium 131 mmol/L (137-145); Total Bilirubin 0.5 mg/dL (0.2-1.3); Total Protein 5.6 g/dL (6.3-8.2)
--- NOTE | 2023-08-04 13:13 | XR ---
EXAMINATION TYPE: XR chest 1V portable DATE OF EXAM: 08/04/2023 HISTORY: Shortness of breath. COMPARISON: 06/24/2022 TECHNIQUE: Single view of the chest is submitted. FINDINGS: Demonstrated are scattered senescent parenchymal change. There is no evidence for focal infiltrate. The heart is stable. Hilar and mediastinal structures are within normal limits. Degenerative changes are seen of the dorsal spine. IMPRESSION: 1. Chronic changes without evidence for acute pulmonary disease.
[2023-08-04 13:16] LABS: NT-Pro-B-Type Natriuretic Pept 1360 pg/mL
[2023-08-04] MEDS ORDERED: NALOXONE 0.4 MG/ML 1 ML VIAL IV PRN (13:28)
[2023-08-04] MEDS ORDERED: ACETAMINOPHEN TAB 325 MG TAB PO PRN (14:44)
[2023-08-04] MEDS ORDERED: DEXTROSE 50% SYRINGE 50 ML IVP PRN ×2 (15:29)
--- NOTE | 2023-08-04 16:19 | P.HPIM ---
History of Present Illness H&P Date: 08/04/23 History of Presenting Illness: Patient is a very pleasant 82-year-old female with a past medical history of hypertension, hyperlipidemia, type II pkd-jubrjjz-wywgxmjro diabetes mellitus, GERD, stage IIIb chronic kidney disease, diverticulitis, and recently diagnosed atrial fibrillation on anticoagulation with Eliquis. Patient and her at bedside report that she was just released from [facility] yesterday after a weeklong hospitalization for diverticulitis with perforation. They report during this hospitalization patient was also diagnosed with new onset atrial fibrillation and started on Eliquis 2.5 mg twice daily, atenolol 25 mg daily, and flecainide 100 mg every 12 hours and discharged home on these prescriptions along with the remaining course of her antibiotic with Augmentin 875/125 mg every 12 hours. Patient reports after discharge yesterday she was initially feeling better and has had a couple of loose greenish brown-colored bowel movements. Patient and her report today patient was in the restroom and patient states she remembers standing up and feeling dizzy grabbing onto the sink, but then reports the next thing she remembers is awakening on the floor between the wall and the cabinet. Patient reports her family found her on the floor and assisted her to standing and again sat her down on the shower chair when she again became dizzy and seemed to have another syncopal episode so they called for EMS to transfer her to the hospital. Per ED documentation EMS reported patient's heart rate was initially in the 30s but upon arrival to our facility heart rate increased to 50. Patient denies having any headache, changes in vision or hearing, chest pain, palpitations, shortness of breath, abdominal pain, nausea, vomiting, experiencing any numbness/tingling/weakness in her extremities, or experiencing any melena or hematochezia. Per ED documentation EMS reported patient's heart rate was initially in the 30s but upon arrival to our facility heart rate increased to 50's. Upon arrival to our facility patient underwent evaluation in the emergency department. Vital signs upon arrival show blood pressure 128/60, heart rate 53, respiratory rate 18, temp 97.1 F, and SpO2 of 98% on room air. EKG showing sinus bradycardia at 52 bpm with a first-degree AV block upon personal review and interpretation. Chest x-ray showing chronic changes without evidence for acute pulmonary disease. Labs completed and reviewed. CBC showing normocytic anemia with hemoglobin of 11.2. Coagulation profile normal findings. BMP showing mild hyponatremia with sodium of 131, hypocarbia with bicarb of 20, and renal function consistent with known stage IIIb chronic kidney disease with BUN of 38, creatinine of 1.58, and GFR of 31. Blood glucose was 231. Magnesium normal findings at 1.8. Liver profile showing transaminitis with AST of 45, ALT of 39, and alkaline phosphatase of 134 (transaminitis was present on previous visit 06/24/2022 and appears to be stable). Patient was admitted under our services with consultation to cardiology. Review of systems: Pertinent positives and negatives as discussed in HPI, a complete review of systems was performed and all other systems are negative. Physical exam: Vital signs reviewed and stable. General: Nontoxic, no distress and appears stated age. Derm: Skin warm and dry, normal coloration for ethnicity. Patient with bruising to bilateral upper extremities, different stages of bruising (likely from lab draws and previous IVs from recent hospitalization) Head: Normocephalic and symmetric. Patient with noted hematoma to left parietal region of head. Eyes: EOMs intact, no lid lag, and anicteric sclera Mouth: no lip lesions, mucus membranes moist Cardiovascular: regular rate and rhythm with normal S1S2, soft systolic murmur, positive posterior tibial pulses bilaterally, and cap refill < 2 seconds. Lungs: Respirations even, regular, and unlabored on room air. Lungs CTA bilaterally, no rhonchi, no rales, no wheezing, and no accessory muscle usage. Abdominal: soft, nontender to palpation, no guarding, no appreciable organomegaly Ext: Movement and sensation intact. No gross muscle atrophy, no edema, no contractures Neuro: Speech clear, face symmetrical and CN II-XII grossly intact with no noted focal neuro deficits. GCS 15. Psych: Alert and oriented to person, place, time, and situation. Appropriate and pleasant affect. Assessment and Plan of Care: Recurrent Syncopal episodes, suspect vasovagal event vs symptomatic bradycardia vs orthostatic hypotension Bradycardia with first-degree AV block Paroxysmal atrial fibrillation, recently diagnosed -Order placed for STAT CT Head d/t unwitnessed syncopal episode on anticoagulation with pt falling between log cabin wall and cabinet along with findings of hematoma to left lateral side of her head -Order placed for neurochecks every 4 hours and fall precautions -Patient to remain on continuous telemetry monitoring. -Hold atenolol secondary to bradycardia -If CT brain is negative, may resume Eliquis 2.5 mg twice daily -Will continue with flecainide 100 mg every 12 hours pending further recommendations from cardiology. -Cardiology consulted, appreciate recommendations -Will obtain medical records from recent hospitalization at [facility] as patient reports diagnosed with atrial fibrillation during this hospitalization, if echocardiogram was not completed we will order at that time. -Troponin negative at less than 0.012 will trend every 3 hours x 2 additional draws. Diabetes mellitus with hyperglycemia -Hold glipizide and patient placed on glycemic protocol with NovoLog sliding scale. Mild hyponatremia -Sodium 131. Will hold Lasix and provide patient with gentle IV fluid hydration with 0.9% normal saline at 75 cc/h for the next 24 hours and reevaluate sodium levels with repeat morning labs. Normocytic anemia -Hemoglobin stable at 11.2. Patient is on anticoagulant with Eliquis but denies any noted bleeding. -Will continue to monitor with repeat a.m. labs. Recently diagnosed diverticulitis with perforation -Continue remaining antibiotic course with Augmentin 875/125 mg tablets. -Status post recent hospitalization. Patient denies abdominal pain, nausea, vomiting, and reports resolution of diarrhea stating stool slightly loose but improving. Hypertension -Atenolol held secondary to bradycardia patient to continue daily medication regimen with lisinopril 10 mg daily. Hyperlipidemia -Patient to continue daily medication regimen with Atorvastatin 40 mg nightly and Zetia 10 mg daily Stage IIIb chronic kidney disease -Renal function appears stable and at baseline with BUN of 38, creatinine 1.58, GFR of 31. Data and imaging reviewed: As stated above in HPI The patient is admitted with an anticipated less than 2 midnight stay for evaluation of recurrent syncopal episodes and bradycardia CODE STATUS: Full code DVT prophylaxis: Eliquis Anticipated discharge date: Clinical course to determine Anticipated discharge place: Clinical course to determine Patient was seen independently by Nurse Practitioner. This document was prepared using [employer] dictation software. Please allow for errors in airbrush artist technical while rare they do occur. Juma Trotter NP rendered care for this patient independently, reviewed the findings and plan as documented in the note above. I did not physically speak with or examine the patient on this date. DUe to dose relate cardiac conduction delays, including [place] prolongation, will hold flecanide until seen by cardio. Past Medical History Past Medical History: Atrial Fibrillation, Diabetes Mellitus, Hypertension, Renal Disease History of Any Multi-Drug Resistant Organisms: None Reported Past Surgical History: Cholecystectomy, Orthopedic Surgery Past Psychological History: No Psychological Hx Reported Smoking Status: Never smoker Past Alcohol Use History: Daily Past Drug Use History: None Reported Medications and Allergies Home Medications Medication Instructions Recorded Confirmed Type Atorvastatin [Lipitor] 40 mg PO HS 03/19/21 08/04/23 History Ergocalciferol [Vitamin D2 (1250 1,250 mcg PO Q14D 03/19/21 08/04/23 History Mcg = 91074 Iu)] Escitalopram [Lexapro] 10 mg PO HS 03/19/21 08/04/23 History Ezetimibe [Zetia] 10 mg PO DAILY 03/19/21 08/04/23 History Furosemide [Lasix] 20 mg PO Q48H 03/19/21 08/04/23 History Furosemide [Lasix] 40 mg PO Q48H 03/19/21 08/04/23 History Magnesium Oxide 400 mg PO Q48H 03/19/21 08/04/23 History allopurinoL [Zyloprim] 100 mg PO DAILY 03/19/21 08/04/23 History calcitrioL 0.25 mcg PO Q48H 03/19/21 08/04/23 History glipiZIDE [Glucotrol] 5 mg PO BID 03/19/21 08/04/23 History rOPINIRole HCL [Requip] 4 mg PO HS 03/19/21 08/04/23 History Acetaminophen Tab [Tylenol] 650 mg PO Q6H PRN 08/04/23 08/04/23 History Amoxic-Pot Clav 875-125Mg 1 tab PO Q12HR 08/04/23 08/04/23 History [Augmentin 875-125] Apixaban [Eliquis] 2.5 mg PO BID 08/04/23 08/04/23 History Flecainide [Tambocor] 100 mg PO Q12HR 08/04/23 08/04/23 History [place] 3-6-9 1 cap PO DAILY 08/04/23 08/04/23 History Zinc Gluconate [Zinc] 50 mg PO DAILY 08/04/23 08/04/23 History atenoloL [Tenormin] 25 mg PO DAILY 08/04/23 08/04/23 History lisinopriL [Zestril] 10 mg PO DAILY 08/04/23 08/04/23 History Allergies Allergy/AdvReac Type Severity Reaction Status Date / Time No Known Allergies Allergy Verified 08/04/23 12:38 Physical Exam Osteopathic Statement: *. No significant issues noted on an osteopathic structural exam other than those noted in the History and Physical/Consult. Vitals: Vital Signs Temp Pulse Pulse Resp BP Pulse Ox 08/04/23 13:58 50 L 18 123/69 94 L 08/04/23 12:38 53 L 08/04/23 12:32 97.1 F L 53 L 18 128/60 98 Intake and Output 08/03/23 08/04/23 08/04/23 22:59 06:59 14:59 Other: Weight 84.822 kg Results CBC & Chem 7: 08/04/23 12:46 08/04/23 12:46 Labs: Abnormal Lab Results - Last 24 Hours (Table) 08/04/23 08/04/23 Range/Units 12:46 12:46 RBC 3.74 L (3.80-5.40) m/uL Hgb 11.2 L (11.4-16.0) gm/dL Sodium 131 L (137-145) mmol/L Carbon Dioxide 20 L (22-30) mmol/L BUN 38 H (7-17) mg/dL Creatinine 1.58 H (0.52-1.04) mg/dL Glucose 231 H (74-99) mg/dL Calcium 8.3 L (8.4-10.2) mg/dL AST 45 H (14-36) U/L ALT 39 H (4-34) U/L Alkaline Phosphatase 134 H (38-126) U/L Total Protein 5.6 L (6.3-8.2) g/dL Albumin 3.1 L (3.5-5.0) g/dL
[2023-08-04 17:36] LABS: Glucose,Whole Blood 153 mg/dL (70-110)
[2023-08-04] MEDS: FUROSEMIDE 20 MG TAB PO SCH ×2 (17:46→17:52)
[2023-08-04] MEDS: INSULIN ASPART (NovoLOG) 100 UNIT/ML VIAL SQ SCH (18:52)
[2023-08-04] MEDS: SODIUM CHLORIDE 0.9% 1,000 ML IV SCH (18:52)
--- NOTE | 2023-08-04 20:06 | CT ---
EXAMINATION TYPE: CT brain wo con CT DLP: 1064.3 mGycm, Automated exposure control for dose reduction was used. DATE OF EXAM: 08/04/2023 4:40 PM COMPARISON: CT 06/24/2022. CLINICAL INDICATION:Female, 82 years old with history of fall on Eliquis, sm hematoma Left lateral pa rietal, fall, on thinners TECHNIQUE: Brain: Axial CT images of the brain were obtained with coronal and sagittal reformats created and rev iewed. Contrast used: None. Oral contrast used: None. FINDINGS: Extra-axial spaces: No abnormal extra-axial fluid collections. Ventricular system: Ventricles appear mildly dilated in proportion to the degree of cerebral atrophy. Cerebral parenchyma: No increased attenuation to suggest acute intraparenchymal hemorrhage. The gra y-white matter interface appears maintained, without evidence of acute ischemic change. Mild general ized brain atrophy, and greater atrophy in the bilateral cerebral hemispheres in the region of the fr ontoparietal junctions with enlargement of the overlying CSF spaces; appears similar to prior. White matter unremarkable by CT. Cerebellum: No acute abnormality. Mass effect: No evidence of mass effect or midline shift. Intracranial vasculature: Atherosclerotic calcifications of the larger arteries near the skull base. Soft tissues: Small area of increased attenuation in the scalp overlying the lateral parietal region, may represent contusion. Visualized orbits: Orbital contents appear grossly intact. There has likely been previous lens surg nic. Calvarium/osseous structures: No evidence of calvarial fracture. Paranasal sinuses and mastoid air cells: No paranasal sinus fluid levels. Mastoids are clear. MRI is more sensitive for detecting acute processes such as infarct, and may be considered if clinica lly warranted. IMPRESSION: No acute intracranial CT abnormality.
[2023-08-04 20:25] LABS: Glucose,Whole Blood 197 mg/dL (70-110)
[2023-08-04] MEDS: AMOXIC-POT CLAV 875-125MG 1 EACH TAB PO SCH (20:27)
[2023-08-04] MEDS: rOPINIRole HCL 4 MG TABLET PO SCH (20:27)
[2023-08-04] MEDS: ESCITALOPRAM 10 MG TAB PO SCH (20:27)
[2023-08-04] MEDS: ATORVASTATIN 40 MG TAB PO SCH (20:27)
[2023-08-04] MEDS: FLECAINIDE 50 MG TAB PO SCH (20:28)
[2023-08-04] MEDS ORDERED: APIXABAN 2.5 MG TABLET PO SCH (21:00)
[2023-08-04] MEDS: APIXABAN 2.5 MG TABLET PO SCH (23:56)
[2023-08-05 06:05] LABS: Glucose,Whole Blood 100 mg/dL (70-110)
[2023-08-05] MEDS ORDERED: OMEGA PO SCH (09:00)
[2023-08-05 09:44] LABS: Basophils # (A) 0.06 X 10*3/uL (0.00-0.10); Basophils % (A) 0.6 %; Eosinophils # (A) 0.53 X 10*3/uL (0.04-0.35); Eosinophils % (A) 5.6 %; HCT 30.8 % (37.2-46.3); Lymphocytes % (A) 26.2 %; MCH 30.4 pg (27.0-32.0); MCHC 32.5 g/dL (32.0-37.0); MCV 93.6 FL (80.0-97.0); Mean Platelet Volume 10.6 FL (9.5-12.2); Monocytes # (A) 1.09 X 10*3/uL (0.20-1.00); Monocytes % (A) 11.4 %; NRBC Per 100 WBC 0 X 10*3/uL (0.00-0.01); Neutrophils % (A) 52.4 %; Platelet Count 356 X 10*3/uL (140-440); RBC 3.29 X 10*6/uL (4.10-5.20); RDW 14.1 % (11.5-14.5); WBC 9.54 X 10*3/uL (4.50-10.00)
[2023-08-05 09:59] LABS: ALT 33 U/L (8-44); AST 18 U/L (13-35); Albumin 3.3 g/dL (3.8-4.9); Albumin/Globulin Ratio 1.57 Ratio (1.60-3.17); Alkaline Phosphatase 112 U/L (41-126); BUN/Creat Ratio 18.67 Ratio (12.00-20.00); Blood Urea Nitrogen 33.6 mg/dL (9.0-27.0); Calcium 8.8 mg/dL (8.7-10.3); Carbon Dioxide 26.5 mmol/L (21.6-31.8); Chloride 101 mmol/L (96-109); Globulin 2.1 g/dL (1.6-3.3); Glucose 96 mg/dL (70-110); Potassium 4.7 mmol/L (3.5-5.5); Sodium 138 mmol/L (135-145); Total Bilirubin 0.2 mg/dL (0.3-1.2); Total Protein 5.4 g/dL (6.2-8.2)
[2023-08-05] MEDS: FLECAINIDE 50 MG TAB PO SCH (11:08)
[2023-08-05] MEDS: lisinopriL 10 MG TAB PO SCH (11:09)
[2023-08-05] MEDS: allopurinoL 100 MG TAB PO SCH (11:10)
[2023-08-05] MEDS: ZINC SULFATE 220 MG CAP PO SCH (11:10)
[2023-08-05] MEDS: MAGNESIUM OXIDE 400 MG TAB PO SCH (11:10)
[2023-08-05] MEDS: EZETIMIBE 10 MG TAB PO SCH (11:10)
[2023-08-05 12:13] LABS: Glucose,Whole Blood 111 mg/dL (70-110)
--- NOTE | 2023-08-05 14:27 | CONS ---
CONSULTATION CHIEF COMPLAINT: Syncope. HISTORY OF PRESENT ILLNESS: This is an 82-year-old lady with history of paroxysmal atrial fibrillation, non-insulin- dependent diabetes, dyslipidemia, who is admitted to hospital following an episode of syncope. She was at home, was going to the bathroom with help from her daughter and as she walked in to the bathroom, she suddenly slumped down and had loss of consciousness. She recovered from it on her own, did not have bladder or bowel incontinence, did not have focal neurological deficits. She had a second episode while she was sitting. Due to this, they brought her to the hospital. Her EKG shows sinus bradycardia with a heart rate of 52 beats per minute. Apparently, heart rate of 30 beats had been documented by EMS. The patient recently had contained perforation in her bowel and had been evaluated and treated at [facility]. While she was in the hospital, she had an episode of syncope very similar to the recent event and at that time she was diagnosed with atrial fibrillation and had been started on flecainide and she is on Tenormin. She is also on Eliquis. I do not have access to the records from [facility]. We are going to get hold of the testing that had been done, but it does not look like she had any documented bradycardia at that time. Syncope could be vasovagal or it could be related to bradycardia related to paroxysmal atrial fibrillation. She had mild orthostatic changes this morning, but she did not have any orthostatic changes earlier when we checked her orthostats. From cardiac standpoint, I am going to watch her on telemetry overnight and if she is stable and does not have further episodes of syncope and her workup at [facility] included at least an echo and as long as the LV function is good and no further documented bradyarrhythmia, we should be able to discharge her home on a 4-week event monitor tomorrow and arrange followup with her labor contractor. If she has documented symptomatic bradycardia, then she will need and would benefit from permanent pacemaker and she will also need a stress test if 1 has not been done within the last 6 months to a year. PAST MEDICAL HISTORY: Significant for jsz-dvfwmhk-zzyunrkvt diabetes, hypertension, dyslipidemia, and paroxysmal atrial fibrillation. CURRENT MEDICATIONS: 1. Eliquis 2.5 b.i.d. 2. Augmentin. 3. Zetia. 4. Tambocor 100 b.i.d. 5. Zyloprim. 6. Tenormin. 7. Glucotrol. 8. Lipitor. 9. Lasix. 10.Lexapro. 11.Magnesium. 12.Zinc. 13.Zestril. ALLERGIES: No known drug allergies. FAMILY HISTORY: Negative for premature coronary artery disease. SOCIAL HISTORY: Negative for current smoking, EtOH use, or drug abuse. REVIEW OF SYSTEMS: A review of systems has been performed, pertinent are as documented. PHYSICAL EXAMINATION: GENERAL: Comfortable at rest. VITAL SIGNS: Heart rate is 51 beats per minute, blood pressure is 137/65 with a 20 mm drop on standing, O2 saturation is 97%. Orthostatics earlier were normal. NECK: There is no jugular venous distention. Carotid upstroke is normal. There is no bruit. CHEST: Reveals good air entry bilaterally. HEART: Reveals first and second heart sounds. No gallop, no murmur. ABDOMEN: Soft. EXTREMITIES: Did not reveal any edema. Peripheral pulses are felt. LABS: Show that the hemoglobin is 10, platelet count is 350, potassium is 4.7, BUN is 33, creatinine is 1.8. Troponin is negative. ASSESSMENT: 1. Syncope. 2. Paroxysmal atrial fibrillation. 3. Recent hospitalization secondary to contained perforation of the bowel, on antibiotics. 4. Chronic renal insufficiency. PLAN: Watch her on telemetry. Check a TSH, either do an echo on this admission tomorrow or get hold of the echo report from her hospitalization at [facility], I am sure they must have done one. If her LV function is normal, then we can discharge her home on event monitor. If she has documented symptomatic bradycardia on this admission, she will need a permanent pacemaker. MMODL / IJN: [id number] /
--- NOTE | 2023-08-05 14:36 | P.PN ---
Subjective Progress Note Date: 08/05/23 Hospital Course: Patient is a very pleasant 82-year-old female with a past medical history of hypertension, hyperlipidemia, type II hun-hhcdlyl-olfutihhk diabetes mellitus, GERD, stage IIIb chronic kidney disease, diverticulitis, and recently diagnosed atrial fibrillation on anticoagulation with Eliquis. Patient and her at bedside report that she was just released from [facility] yesterday after a week long hospitalization for diverticulitis with perforation. They report during this hospitalization patient was also diagnosed with new onset atrial fibrillation and started on Eliquis 2.5 mg twice daily, atenolol 25 mg daily, and flecainide 100 mg every 12 hours and discharged home on these prescriptions along with the remaining course of her antibiotic with Augmentin 875/125 mg every 12 hours. Patient reports after discharge yesterday she was initially feeling better and has had a couple of loose greenish brown-colored bowel movements. Patient and her report today patient was in the restroom and patient states she remembers standing up and feeling dizzy grabbing onto the sink, but then reports the next thing she remembers is awakening on the floor between the wall and the cabinet. Patient reports her family found her on the floor and assisted her to standing and again sat her down on the shower chair when she again became dizzy and seemed to have another syncopal episode so they called for EMS to transfer her to the hospital. Patient denies having any headache, changes in vision or hearing, chest pain, palpitations, shortness of breath, abdominal pain, nausea, vomiting, experiencing any numbness/tingling/weakness in her extremities, or experiencing any melena or hematochezia. Per ED documentation, EMS reported patient's heart rate was initially in the 30s but upon arrival to our facility heart rate increased to 50's. Upon arrival to our facility patient underwent evaluation in the emergency department. Vital signs upon arrival show blood pressure 128/60, heart rate 53, respiratory rate 18, temp 97.1 F, and SpO2 of 98% on room air. EKG showing sinus bradycardia at 52 bpm with a first-degree AV block upon personal review and interpretation. Chest x-ray showing chronic changes without evidence for acute pulmonary disease. Labs completed and reviewed. CBC showing normocytic anemia with hemoglobin of 11.2. Coagulation profile normal findings. BMP showing mild hyponatremia with sodium of 131, hypocarbia with bicarb of 20, and renal function consistent with known stage IIIb chronic kidney disease with BUN of 38, creatinine of 1.58, and GFR of 31. Blood glucose was 231. Magnesium normal findings at 1.8. Liver profile showing transaminitis with AST of 45, ALT of 39, and alkaline phosphatase of 134 (transaminitis was present on previous visit 06/24/2022 and appears to be stable). Patient was admitted under our services with consultation to cardiology. Physical exam: Patient seen and fully evaluated at bedside this morning. Patient's daughter and also at bedside at this time. Patient reports feeling well this morning and had no further episodes of syncope, dizziness, or any other complaints. Patient's heart rate remains in the 50s. Orthostatic vitals completed were negative for orthostatic hypotension. Patient's daughter at bedside reporting that she is mostly concerned of seizure activity as she reports she is an RN and she personally witnessed her mom having inez ing/continuous jerking movements of bilateral upper extremities during second syncopal event yesterday. Vital signs reviewed and stable. General: Nontoxic, no distress and appears stated age. Derm: Skin warm and dry, normal coloration for ethnicity. Patient with bruising to bilateral upper extremities, different stages of bruising (likely from lab draws and previous IVs from recent hospitalization) Head: Normocephalic and symmetric. Patient with noted hematoma to left parietal region of head. Eyes: EOMs intact, no lid lag, and anicteric sclera Mouth: no lip lesions, mucus membranes moist Cardiovascular: regular rate and rhythm with normal S1S2, soft systolic murmur, positive posterior tibial pulses bilaterally, and cap refill < 2 seconds. Lungs: Respirations even, regular, and unlabored on room air. Lungs CTA bilaterally, no rhonchi, no rales, no wheezing, and no accessory muscle usage. Abdominal: soft, nontender to palpation, no guarding, no appreciable organomegaly Ext: Movement and sensation intact. No gross muscle atrophy, no edema, no contractures Neuro: Speech clear, face symmetrical and CN II-XII grossly intact with no noted focal neuro deficits. GCS 15. Psych: Alert and oriented to person, place, time, and situation. Appropriate and pleasant affect. Assessment and Plan of Care: Recurrent Syncopal episodes, suspect vasovagal event vs symptomatic bradycardia vs orthostatic hypotension vs seizure Bradycardia with first-degree AV block Paroxysmal atrial fibrillation, recently diagnosed -CT head negative for acute intracranial process. -Continue neurochecks every 4 hours and fall precautions -Patient to remain on continuous telemetry monitoring. -Discontinue atenolol due to bradycardia and resume Flecainide 100 mg twice daily. -Continue Eliquis 2.5 mg twice daily -Cardiology consulted, appreciate recommendations -Neurology consulted as patient's daughter reports during second syncopal episode patient's bilateral upper extremities had continuous jerking movements. -EEG ordered. -Awaiting medical records from recent hospitalization at [facility] as patient reports diagnosed with atrial fibrillation during this hospitalization, if echocardiogram was not completed we will order at that time. -Troponins were trended all negative at less than 0.012 x 3 draws. - 1/2 set of orthostatic vitals are positive, will continue to monitor. Diabetes mellitus with hyperglycemia -Hold glipizide and patient placed on glycemic protocol with NovoLog sliding scale. Mild hyponatremia -Sodium 131. Will hold Lasix and provide patient with gentle IV fluid hydration with 0.9% normal saline at 75 cc/h for the next 24 hours and reevaluate sodium levels with repeat morning labs. Normocytic anemia -Hemoglobin stable at 10.0. Patient is on anticoagulant with Eliquis but denies any noted bleeding. -Will continue to monitor with repeat a.m. labs. Recently diagnosed diverticulitis with perforation -Continue remaining antibiotic course with Augmentin 875/125 mg tablets. -Status post recent hospitalization. Patient denies abdominal pain, nausea, vomiting, and reports resolution of diarrhea stating stool slightly loose but improving. Hypertension -Atenolol discontinued secondary to bradycardia patient to continue daily medication regimen with lisinopril 10 mg daily. Hyperlipidemia -Patient to continue daily medication regimen with Atorvastatin 40 mg nightly and Zetia 10 mg daily Stage IIIb chronic kidney disease -Renal function appears stable and at baseline with BUN of 33.6, creatinine 1.8, and GFR of 28. Data and imaging reviewed: Orthostatic vitals reviewed and were negative for orthostatic hypotension. Blood pressure supine 118/65 with heart rate of 51, sitting 123/74 with heart rate of 53, and standing blood pressure 118/68 with heart rate of 50. Morning labs reviewed. CBC showing hemoglobin of 10.0. BMP showing renal function consistent with stage IIIb CKD but elevated slightly from yesterday with BUN of 33.6, creatinine of 1.8, and GFR of 28. CODE STATUS: Full code DVT prophylaxis: Eliquis Anticipated discharge date: Clinical course to determine Anticipated discharge place: Clinical course to determine Patient was seen independently by Nurse Practitioner. This document was prepared using [employer] dictation software. Please allow for errors in soil chemist while rare they do occur. Juma Trotter XEROX MACHINE OPERATOR rendered care for this patient independently, reviewed the findings and plan as documented in the note above. I did not physically speak with or examine the patient on this date. Objective - Vital Signs Vital signs: Vital Signs Temp 97.4 F L 08/05/23 02:09 Pulse 53 L 08/05/23 02:09 Resp 16 08/05/23 02:09 BP 105/66 08/05/23 02:09 Pulse Ox 94 L 08/05/23 02:09 FiO2 Intake & Output 08/04/23 08/05/23 08/05/23 18:59 06:59 18:59 Weight 84.822 kg Other: # Voids 1 - Labs CBC & Chem 7: 08/05/23 04:24 08/05/23 04:24 Labs: Abnormal Lab Results - Last 24 Hours (Table) 08/04/23 08/04/23 08/04/23 Range/Units 12:46 12:46 17:35 RBC 3.74 L (3.80-5.40) m/uL Hgb 11.2 L (11.4-16.0) gm/dL Sodium 131 L (137-145) mmol/L Carbon Dioxide 20 L (22-30) mmol/L BUN 38 H (7-17) mg/dL Creatinine 1.58 H (0.52-1.04) mg/dL Glucose 231 H (74-99) mg/dL POC Glucose (mg/dL) 153 H (70-110) mg/dL Calcium 8.3 L (8.4-10.2) mg/dL AST 45 H (14-36) U/L ALT 39 H (4-34) U/L Alkaline Phosphatase 134 H (38-126) U/L Total Protein 5.6 L (6.3-8.2) g/dL Albumin 3.1 L (3.5-5.0) g/dL 08/04/23 Range/Units 20:24 RBC (3.80-5.40) m/uL Hgb (11.4-16.0) gm/dL Sodium (137-145) mmol/L Carbon Dioxide (22-30) mmol/L BUN (7-17) mg/dL Creatinine (0.52-1.04) mg/dL Glucose (74-99) mg/dL POC Glucose (mg/dL) 197 H (70-110) mg/dL Calcium (8.4-10.2) mg/dL AST (14-36) U/L ALT (4-34) U/L Alkaline Phosphatase (38-126) U/L Total Protein (6.3-8.2) g/dL Albumin (3.5-5.0) g/dL
[2023-08-05] MEDS: IV FLUID CONTINUATION 1,000 ML IV ONE (17:23)
[2023-08-05] MEDS ORDERED: LIDOCAINE 1% INJ 10MG/ML (20 ML MDV) ONE (17:27)
--- NOTE | 2023-08-05 17:36 | P.EN ---
Patient had 4 pauses while sleeping at approximately 4 PM. The longest being 8 seconds. Her blood pressure upon waking was stable. Dr. Christensen was contacted and recommended temporary pacer. Dr. Peña contacted for ICU admission after temporary pacer and he is in agreement. Patient was monitored closely by myself and an ICU nurse until she was taken to Radiation Technician for temporary pacer. Fairly updated in waiting room all questions answered. Will continue to monitor. Patient is awake, alert, talking and asking appropraite questions. She feels slightly light headed and her right arm feels shaky. No chest pain, No shortness of breath. General: Nontoxic, no distress, appears at stated age Cardiovascular: S1S2 carline, no murmur Lungs: CTA bilateral, no rhonchi, no rales, no accessory muscle use Neuro: CN II-XI grossly intact, no focal neuro deficits Psych: Alert, oriented, appropriate affect
[2023-08-05] MEDS ORDERED: fentaNYL (PF) 50 MCG/ML 2 ML AMP ONE (17:39)
[2023-08-05] MEDS: fentaNYL (PF) 50 MCG/ML 2 ML AMP IVP ONE (17:44)
[2023-08-05] MEDS: MIDAZOLAM 2 MG/2 ML VIAL IVP ONE (17:45)
[2023-08-05] MEDS: LIDOCAINE 1% INJ 10MG/ML (20 ML MDV) SQ ONE (17:47)
[2023-08-05 18:27] LABS: Glucose,Whole Blood 173 mg/dL (70-110)
[2023-08-05] MEDS: SODIUM CHLORIDE 0.9% 1,000 ML IV SCH (18:48)
[2023-08-05 19:00] LABS: HCT 34.4 % (34.0-46.0); HGB 10.9 gm/dL (11.4-16.0); MCH 30.6 pg (25.0-35.0); MCHC 31.6 g/dL (31.0-37.0); MCV 96.7 fL (80.0-100.0); Mean Platelet Volume 9.1; Platelet Count 337 k/uL (150-450); RBC 3.56 m/uL (3.80-5.40); RDW 13.8 % (11.5-15.5); WBC 9.4 k/uL (3.8-10.6)
[2023-08-05 19:15] LABS: ALT 32 U/L (4-34); AST 23 U/L (14-36); African American GFR (CKD) 31 (>60 ml/min/1.73 sqM); Albumin 2.9 g/dL (3.5-5.0); Albumin/Globulin Ratio 1.2; Alkaline Phosphatase 125 U/L (38-126); Anion Gap 5 mmol/L; Blood Urea Nitrogen 34 mg/dL (7-17); Carbon Dioxide 24 mmol/L (22-30); Chloride 106 mmol/L (98-107); Globulin 2.5 g/dL; Glucose 165 mg/dL (74-99); Non-African American GFR(CKD) 27 (>60 ml/min/1.73 sqM); Potassium 4.5 mmol/L (3.5-5.1); Sodium 135 mmol/L (137-145); Total Bilirubin 0.4 mg/dL (0.2-1.3); Total Protein 5.4 g/dL (6.3-8.2)
[2023-08-05 19:24] LABS: Partial Thromboplastin Time 22.1 sec (22.0-30.0)
[2023-08-05 19:47] LABS: Glucose,Whole Blood 137 mg/dL (70-110)
--- NOTE | 2023-08-06 01:40 | P.CNPUL ---
History of Present Illness Consult date: 08/06/23 Requesting physician: Maribell Franco Reason for consult: other (ICU management; bradycardia) Chief complaint: Syncope History of present illness: Patient is an 82-year-old white female with past medical history significant for atrial fibrillation, diabetes mellitus, hypertension, chronic kidney disease, diverticulitis. Of note, she recently had a stay at [facility] for 5 days. She was found to have a diverticulitis with ruptured diverticulum, which was treated conservatively with antibiotics. While inpatient, she was reportedly diagnosed with new onset atrial fibrillation. She did have a reported syncopal event while inpatient at the outside facility. She was reportedly getting up to the bathroom at that time, and was found between the toilet and the wall. She states that she "blacked out". The patient herself does not recall this event. She denies seizure history. No bowel or bladder incontinence. No focal neurological deficits. She was started on a combination of atenolol, flecainide, and Eliquis on discharge from the outside facility. I do not have access to these records at this time. Patient reportedly was only home for 1 day. While at home, the patient had a subsequent syncopal event. Her daughter witnessed the event, and called 911. EMS reported a heart rate of 30 bpm in route to the hospital. On arrival to the emergency room, on 08/04/23, she was found to be in sinus bradycardia with first-degree AV block. She did reportedly take her atenolol earlier that day. Brain CT showed no acute intracranial process, no hemorrhage or midline shift. She was admitted for observation, and admitted to the cardiac stepdown unit. While inpatient, the patient was noted to have multiple pauses, the longest being 8 seconds. She was taken to the [facility] for a temporary transvenous pacemaker. She did not require any atropine or emergency medications. She is currently lying in bed, in room 259, in a supine position. She is alert and oriented and answers all my questions. Heart rhythm appears to be sinus bradycardia, with a rate of 52 bpm, and there is a first-degree AV block on bedside monitor. The transvenous pacemaker is in place and set up with a backup rate. She denies any chest pain, heart palpitations, lightheadedness. Her atenolol has been stopped. Anticoagulation has been resumed. Her abdomen is soft and nontender. She is passing gas. She reports some loose brown bowel movements while at home. Denies any bright red blood or melanotic stools. Denies any hematemesis. Hemoglobin is at 10.9 g/dL. Denies any fevers. She continues on her antibiotics, which is Augmentin. CBC from yesterday unremarkable. No leukocytosis. CMP from yesterday: Sodium 135, potassium 4.5, chloride 106, serum bicarb 24, BUN 34, creatinine 1.78, glucose 165. LFTs not elevated. Troponins less than 0.012 x 3. NT proBNP 1300. EKG on arrival showed sinus bradycardia with first-degree AV block at a rate of 52 bpm. No obvious acute ischemic changes. Vital signs are stable. Review of Systems REVIEW OF SYSTEMS: CONSTITUTIONAL: Denies any recent significant weight loss or weight gain. EYES: Denies change in vision. EARS, NOSE, MOUTH, THROAT: Denies headaches, denies sore throat. CARDIOVASCULAR: Denies chest pain, palpitations, or lower extremity swelling. Admits syncopal events as reported in HPI. RESPIRATORY: Denies shortness of breath, cough, congestion or hemoptysis. GASTROINTESTINAL:see HPI GENITOURINARY: Denies hematuria, denies infections. MUSKULOSKELETAL: Denies pain, denies swelling. INTEGUMENTARY: Denies rash, denies eczema. NEUROLOGICAL: Denies recent memory loss, no recent seizure activity. PSYCHIATRIC: Denies anxiety, denies depression. HEMATOLOGIC/LYMPHATIC: Denies anemia, denies enlarged lymph node Past Medical History Past Medical History: Atrial Fibrillation, Diabetes Mellitus, Hypertension, Renal Disease History of Any Multi-Drug Resistant Organisms: None Reported Past Surgical History: Cholecystectomy, Orthopedic Surgery Additional Past Surgical History / Comment(s): toes, total shoulder arthroplasty, ankle fracture/rods Past Anesthesia/Blood Transfusion Reactions: No Reported Reaction Past Psychological History: No Psychological Hx Reported Smoking Status: Never smoker Past Alcohol Use History: Daily Past Drug Use History: None Reported Medications and Allergies Home Medications Medication Instructions Recorded Confirmed Type Atorvastatin [Lipitor] 40 mg PO HS 03/19/21 08/04/23 History Ergocalciferol [Vitamin D2 (1250 1,250 mcg PO Q14D 03/19/21 08/04/23 History Mcg = 19195 Iu)] Escitalopram [Lexapro] 10 mg PO HS 03/19/21 08/04/23 History Ezetimibe [Zetia] 10 mg PO DAILY 03/19/21 08/04/23 History Furosemide [Lasix] 20 mg PO Q48H 03/19/21 08/04/23 History Furosemide [Lasix] 40 mg PO Q48H 03/19/21 08/04/23 History Magnesium Oxide 400 mg PO Q48H 03/19/21 08/04/23 History allopurinoL [Zyloprim] 100 mg PO DAILY 03/19/21 08/04/23 History calcitrioL 0.25 mcg PO Q48H 03/19/21 08/04/23 History glipiZIDE [Glucotrol] 5 mg PO BID 03/19/21 08/04/23 History rOPINIRole HCL [Requip] 4 mg PO HS 03/19/21 08/04/23 History Acetaminophen Tab [Tylenol] 650 mg PO Q6H PRN 08/04/23 08/04/23 History Amoxic-Pot Clav 875-125Mg 1 tab PO Q12HR 08/04/23 08/04/23 History [Augmentin 875-125] Apixaban [Eliquis] 2.5 mg PO BID 08/04/23 08/04/23 History Flecainide [Tambocor] 100 mg PO Q12HR 08/04/23 08/04/23 History [place] 3-6-9 1 cap PO DAILY 08/04/23 08/04/23 History Zinc Gluconate [Zinc] 50 mg PO DAILY 08/04/23 08/04/23 History atenoloL [Tenormin] 25 mg PO DAILY 08/04/23 08/04/23 History lisinopriL [Zestril] 10 mg PO DAILY 08/04/23 08/04/23 History Allergies Allergy/AdvReac Type Severity Reaction Status Date / Time No Known Allergies Allergy Verified 08/04/23 12:38 Physical Exam Vitals: Vital Signs Temp Pulse Pulse Pulse Pulse Pulse Resp 08/05/23 23:00 50 L 11 L 08/05/23 22:00 52 L 22 08/05/23 21:00 53 L 11 L 08/05/23 20:00 98.3 F 55 L 20 04/07/24 19:00 54 L 12 08/05/23 18:50 57 L 19 08/05/23 18:40 56 L 14 08/05/23 18:30 56 L 19 08/05/23 15:00 97.3 F L 55 L 15 08/05/23 07:55 97.4 F L 51 L 57 L 52 L 15 08/05/23 02:09 97.4 F L 53 L 16 BP BP BP BP Pulse Ox 08/05/23 23:00 126/76 96 08/05/23 22:00 128/118 95 08/05/23 21:00 138/65 93 L 08/05/23 20:00 167/68 93 L 08/05/23 19:00 95 08/05/23 18:50 93 L 08/05/23 18:40 161/68 95 08/05/23 18:30 163/66 94 L 08/05/23 15:00 107/58 95 08/05/23 07:55 137/65 143/69 117/74 97 08/05/23 02:09 105/66 94 L Intake and Output 08/05/23 08/05/23 08/06/23 14:59 22:59 06:59 Intake Total 236 400 50 Output Total 0 0 Balance 236 400 50 Intake: IV 400 50 Sodium Chloride 0.9% 1, 200 50 000 ml @ 50 mls/hr IV . Q20H [facility] Rx#:[id number] Oral 236 Output: Urine 0 0 Other: Voiding Method Bedpan Bedpan External Catheter External Catheter # Voids 2 1 # Bowel Movements 1 GENERAL EXAM: Alert, 82-year-old obese white female, lying supine, with TVP with right femoral access, comfortable in no apparent distress. HEAD: Normocephalic and atraumatic EYES: Normal reaction of pupils, equal size. NOSE: Clear with pink turbinates. THROAT: No erythema or exudates. NECK: No masses, no JVD. CHEST: No chest wall deformity. LUNGS: Equal air entry with no crackles, wheeze, rhonchi or dullness. On room air. No conversational dyspnea or accessory muscle use.. CVS: S1 and S2 normal with no audible murmur, regular rhythm. No extra heart sounds ABDOMEN: No hepatosplenomegaly, active bowel sounds, no guarding or rigidity. SPINE: No scoliosis or deformity SKIN: No rashes CENTRAL NERVOUS SYSTEM: No focal deficits, tone is normal in all 4 extremities. EXTREMITIES: There is no peripheral edema, clubbing, or cyanosis. Peripheral pulses are intact. Right femoral access site clean and dry. No hematoma. Results - Laboratory Findings CBC and BMP: 08/06/23 03:24 08/06/23 03:24 PT/INR, D-dimer PT 11.0 sec (10.0-12.5) 08/05/23 18:48 INR 1.0 (<1.2) 08/05/23 18:48 Abnormal lab findings: Abnormal Labs 08/04/23 08/04/23 08/04/23 12:46 12:46 17:35 RBC 3.74 L Hgb 11.2 L Hct Immature Gran # Monocytes # Eosinophils # Sodium 131 L Carbon Dioxide 20 L BUN 38 H Creatinine 1.58 H Est GFR (CKD-EPI) Glucose 231 H POC Glucose (mg/dL) 153 H Calcium 8.3 L Total Bilirubin AST 45 H ALT 39 H Alkaline Phosphatase 134 H Total Protein 5.6 L Albumin 3.1 L Albumin/Globulin Ratio 08/04/23 08/05/23 08/05/23 20:24 04:24 04:24 RBC 3.29 L Hgb 10.0 L Hct 30.8 L Immature Gran # 0.36 H Monocytes # 1.09 H Eosinophils # 0.53 H Sodium Carbon Dioxide BUN 33.6 H Creatinine 1.8 H Est GFR (CKD-EPI) 28 L Glucose POC Glucose (mg/dL) 197 H Calcium Total Bilirubin 0.2 L AST ALT Alkaline Phosphatase Total Protein 5.4 L Albumin 3.3 L Albumin/Globulin Ratio 1.57 L 08/05/23 08/05/23 08/05/23 12:11 18:25 18:48 RBC 3.56 L Hgb 10.9 L Hct Immature Gran # Monocytes # Eosinophils # Sodium Carbon Dioxide BUN Creatinine Est GFR (CKD-EPI) Glucose POC Glucose (mg/dL) 111 H 173 H Calcium Total Bilirubin AST ALT Alkaline Phosphatase Total Protein Albumin Albumin/Globulin Ratio 08/05/23 08/05/23 18:48 19:45 RBC Hgb Hct Immature Gran # Monocytes # Eosinophils # Sodium 135 L Carbon Dioxide BUN 34 H Creatinine 1.78 H Est GFR (CKD-EPI) Glucose 165 H POC Glucose (mg/dL) 137 H Calcium 8.0 L Total Bilirubin AST ALT Alkaline Phosphatase Total Protein 5.4 L Albumin 2.9 L Albumin/Globulin Ratio - Diagnostic Findings Chest x-ray: image reviewed Assessment and Plan Assessment: Suspect cardiac syncope, status post insertion of a right femoral temporary transvenous pacemaker 08/05/2023. Patient did have recorded pauses while admitted to the cardiac stepdown unit, longest being 8 seconds. Atenolol has been stopped. She has been admitted to the intensive care unit for close monitoring. Sinus bradycardia with first-degree AV block Recent history of atrial fibrillation, was placed on a combination of atenolol, flecainide, and Eliquis at outside facility. Recent history of diverticulitis with perforated diverticulum, reportedly treated conservatively at [facility], discharged less than 24 hours before presenting to our emergency room with questionable subsequent syncopal event. She continues on Augmentin. Diabetes mellitus, type II History of hyperlipidemia Chronic kidney disease, stage III Anemia of chronic disease, secondary to above, hemoglobin stable Obesity, with a BMI of 34.2 kg/m Plan: Patient's medications, labs, chest x-ray reviewed Patient is currently admitted to the intensive care unit for closer monitoring. She is status post insertion of a of a temporary transvenous pacemaker which is currently set at a backup rate. Patient's current intrinsic rhythm is sinus bradycardia with first-degree AV block Atenolol was stopped. Continues on anticoagulation with Eliquis Cardiology is following Patient's abdomen appears soft and nontender and nonacute. She continues on Augmentin. Fall precautions CT of the brain reviewed, no acute intracranial process. Prognosis is guarded. Will continue to follow while in the intensive care unit. I have personally seen and examined the patient, performed the documentation and the assessment and plan as written. Number of minutes spent on the visit:20 Time with Patient: Greater than 30
[2023-08-06 04:26] LABS: Basophils % (A) 0 %; Eosinophils # (A) 0.3 k/uL (0-0.7); Eosinophils % (A) 4 %; HCT 34.9 % (34.0-46.0); HGB 10.9 gm/dL (11.4-16.0); Lymphocytes # (A) 1.8 k/uL (1.0-4.8); Lymphocytes % (A) 20 %; MCH 30.2 pg (25.0-35.0); MCHC 31.1 g/dL (31.0-37.0); MCV 97.2 fL (80.0-100.0); Monocytes # (A) 0.6 k/uL (0-1.0); Monocytes % (A) 6 %; Neutrophils # (A) 6.4 k/uL (1.3-7.7); Neutrophils % (A) 69 %; Platelet Count 361 k/uL (150-450); RBC 3.59 m/uL (3.80-5.40); RDW 13.7 % (11.5-15.5); WBC 9.3 k/uL (3.8-10.6)
[2023-08-06 04:38] LABS: African American GFR (CKD) 36 (>60 ml/min/1.73 sqM); Anion Gap 7 mmol/L; Blood Urea Nitrogen 28 mg/dL (7-17); Calcium 8.3 mg/dL (8.4-10.2); Carbon Dioxide 21 mmol/L (22-30); Chloride 107 mmol/L (98-107); Glucose 129 mg/dL (74-99); Magnesium 2.2 mg/dL (1.6-2.3); Non-African American GFR(CKD) 32 (>60 ml/min/1.73 sqM); Potassium 4.8 mmol/L (3.5-5.1); Sodium 135 mmol/L (137-145)
[2023-08-06] MEDS: amLODIPine 10 MG TAB PO STA (06:13)
[2023-08-06 06:50] LABS: Glucose,Whole Blood 136 mg/dL (70-110)
--- NOTE | 2023-08-06 07:46 | P.CNNES ---
History of Present Illness Consult date: 08/05/23 Requesting physician: Juma Trotter Reason for Consult: Recurrent syncope, patient's daughter reports BUE shaking during event. History of Present Illness: Patient is a 82-year-old right-handed female with history of diabetes, hypertension, chronic renal disease, came to the hospital by ambulance yesterday at 12:30 PM for syncope versus seizure. Patient's daughter was present, who related with detailed history. She mentioned that she was at the house at 9:30 AM. She took her medication at 10 AM. She was sitting in the bedroom, wanted to go to the restroom. As she was getting to sit down on the commode, patient started passing out, fell between the toilet and the wall. Patient's daughter helped her. She came to shortly after. She said for about 5 minutes. Patient had lost bowels and bladder during this event. About few minutes later, patient had another syncopal spell in which her arms were shaking, flailing. Patient's daughter called the ambulance. As per EMS for sheet, when they arrived, found patient sitting upright. Patient was pale, diaphoretic and states she feels faint again. Patient was alert and oriented, answering questions appropriately. Patient states she was getting up to use restroom and she blacked out falling between toilet and ball. Daughter said that she was out for almost a minute. Patient was helped into sitting position then fainted again for another minute. Patient denied any head, neck, back or chest pain. Patient denies any difficulty breathing, vomiting. Patient required c-collar for precautions. Physical examination revealed no other abnormalities or deformities. Stroke scale was negative. Patient recently hospitalized for perforated bowel and new onset atrial fibrillation. Patient extricated. Patient was nauseated and given medication. Patient's vitals at the scene was blood pressure 107/51, pulse rate 33 respiration 18, saturation 96% and blood sugar 257. Repeat pulse was 81. Patient's pulse rate has been running around 50s. Patient is afebrile. Blood test shows normal WBC hemoglobin 11.2, normal platelets. PT/PTT normal. Sodium 131 potassium 4.3, BUN 38, creatinine 1.58. AST 45, ALT 39. Troponin negative. Chest x-ray showed chronic changes without evidence for acute pulmonary disease. EKG shows supraventricular bradycardia. CT head showed no acute intracranial process. Patient's daughter mentioned that patient was admitted at [facility] from 07/28/2023 and was discharged on 08/02/2023 for perforated bowel, and new onset atrial fibrillation. Patient did have a syncopal spell at [facility] as well. She was in the hospital, in the bed, she stood up and passed out and fell in the bed. The syncope was felt to be related to her atrial fibrillation. Patient has been placed on Eliquis and Flecanide. Patient has history of diabetes, hypertension, chronic renal disease. Patient non-tobacco user, does not drink alcohol. No previous history of seizures. Patient's daughter mentions that she walks by herself, sometimes uses a cane for last 2 years. Review of Systems Constitutional: Denies chills, Denies fever Eyes: denies blurred vision, denies diplopia, denies pain, denies loss of vision Ears: bilateral: decreased hearing, deny: ear discharge, earache Ears, nose, mouth and throat: Denies headache, Denies sore throat, Denies vertigo Cardiovascular: Reports lightheadedness, Reports shortness of breath, Denies chest pain Respiratory: Denies cough, Denies excessive sputum Gastrointestinal: Reports vomiting (sunday in [facility] ), Denies abdominal pain, Denies diarrhea, Denies nausea Genitourinary: Reports urge incontinence, Reports urgency, Denies dysuria Musculoskeletal: Denies low back pain, Denies neck pain Integumentary: Denies pruritus, Denies rash Neurological: Reports as per HPI Psychiatric: Reports anxiety, Reports depression Hematologic/Lymphatic: Reports easy bruising, Denies easy bleeding Past Medical History Past Medical History: Atrial Fibrillation, Diabetes Mellitus, Hypertension, Renal Disease History of Any Multi-Drug Resistant Organisms: None Reported Past Surgical History: Cholecystectomy, Orthopedic Surgery Additional Past Surgical History / Comment(s): toes, total shoulder arthroplast y, ankle fracture/rods Past Anesthesia/Blood Transfusion Reactions: No Reported Reaction Past Psychological History: No Psychological Hx Reported Smoking Status: Never smoker Past Alcohol Use History: Daily Past Drug Use History: None Reported Medications and Allergies Home Medications Medication Instructions Recorded Confirmed Type Atorvastatin [Lipitor] 40 mg PO HS 03/19/21 08/04/23 History Ergocalciferol [Vitamin D2 (1250 1,250 mcg PO Q14D 03/19/21 08/04/23 History Mcg = 96655 Iu)] Escitalopram [Lexapro] 10 mg PO HS 03/19/21 08/04/23 History Ezetimibe [Zetia] 10 mg PO DAILY 03/19/21 08/04/23 History Furosemide [Lasix] 20 mg PO Q48H 03/19/21 08/04/23 History Furosemide [Lasix] 40 mg PO Q48H 03/19/21 08/04/23 History Magnesium Oxide 400 mg PO Q48H 03/19/21 08/04/23 History allopurinoL [Zyloprim] 100 mg PO DAILY 03/19/21 08/04/23 History calcitrioL 0.25 mcg PO Q48H 03/19/21 08/04/23 History glipiZIDE [Glucotrol] 5 mg PO BID 03/19/21 08/04/23 History rOPINIRole HCL [Requip] 4 mg PO HS 03/19/21 08/04/23 History Acetaminophen Tab [Tylenol] 650 mg PO Q6H PRN 08/04/23 08/04/23 History Amoxic-Pot Clav 875-125Mg 1 tab PO Q12HR 08/04/23 08/04/23 History [Augmentin 875-125] Apixaban [Eliquis] 2.5 mg PO BID 08/04/23 08/04/23 History Flecainide [Tambocor] 100 mg PO Q12HR 08/04/23 08/04/23 History [place] 3-6-9 1 cap PO DAILY 08/04/23 08/04/23 History Zinc Gluconate [Zinc] 50 mg PO DAILY 08/04/23 08/04/23 History atenoloL [Tenormin] 25 mg PO DAILY 08/04/23 08/04/23 History lisinopriL [Zestril] 10 mg PO DAILY 08/04/23 08/04/23 History Allergies Allergy/AdvReac Type Severity Reaction Status Date / Time No Known Allergies Allergy Verified 08/04/23 12:38 Physical Examination - Vital Signs Vital Signs: Vital Signs Temp Pulse Pulse Pulse Pulse Resp BP 08/05/23 07:55 97.4 F L 51 L 57 L 52 L 15 137/65 08/05/23 02:09 97.4 F L 53 L 16 105/66 08/04/23 19:28 97.9 F 54 L 16 113/66 08/04/23 17:50 97.4 F L 51 L 53 L 50 L 15 118/65 BP BP Pulse Ox 08/05/23 07:55 143/69 117/74 97 08/05/23 02:09 94 L 08/04/23 19:28 95 08/04/23 17:50 123/74 118/68 97 Intake and Output 08/05/23 08/05/23 08/05/23 06:59 14:59 22:59 Other: # Voids 1 Patient is an elderly female, in no acute distress. Patient is slightly somnolent, but does wake up, and becomes alert awake oriented to time place and person. Patient knows it is July 2023 and that she is in [facility] and name of the current president. Speech and language functions are normal. Patient can name and repeat very well. No aphasia or dysarthria. Attention, concentration and fund of knowledge is adequate. On cranial nerve examination, pupils are equal, round and reacting to light, visual daily are full on confrontation, with no neglect on double simultaneous stimulation. Extraocular muscles are intact with no nystagmus. Face is symmetric, tongue protrudes to the midline. Palatal elevation and sensation normal, hearing and shoulder shrug normal, facial sensation normal. On muscle strength testing, there is no pronator drift and the strength is normal in arms and legs distally and proximally. Deep tendon reflexes are symmetric 1+ and plantars downgoing. Sensory to touch is equal with no neglect on double simultaneous stimulation. Cerebellar function showed no ataxia for [id number] testing. No dysdiadochokinesia. No ataxia for [id number] testing on either side. Tone and bulk of muscles normal. Gait deferred.. On general examination, there is no carotid bruit or murmur, S1-S2 audible. Chest is clear on consultation. Abdomen is soft nontender. No organomegaly, bowel sounds present. Peripheral pulses are present. No peripheral edema. Results - Laboratory Findings CBC and BMP: 08/06/23 03:24 08/06/23 03:24 Abnormal Lab Findings: Abnormal Labs 08/04/23 08/04/23 08/04/23 12:46 12:46 17:35 RBC 3.74 L Hgb 11.2 L Hct Immature Gran # Monocytes # Eosinophils # Sodium 131 L Carbon Dioxide 20 L BUN 38 H Creatinine 1.58 H Est GFR (CKD-EPI) Glucose 231 H POC Glucose (mg/dL) 153 H Calcium 8.3 L Total Bilirubin AST 45 H ALT 39 H Alkaline Phosphatase 134 H Total Protein 5.6 L Albumin 3.1 L Albumin/Globulin Ratio 08/04/23 08/05/23 08/05/23 20:24 04:24 04:24 RBC 3.29 L Hgb 10.0 L Hct 30.8 L Immature Gran # 0.36 H Monocytes # 1.09 H Eosinophils # 0.53 H Sodium Carbon Dioxide BUN 33.6 H Creatinine 1.8 H Est GFR (CKD-EPI) 28 L Glucose POC Glucose (mg/dL) 197 H Calcium Total Bilirubin 0.2 L AST ALT Alkaline Phosphatase Total Protein 5.4 L Albumin 3.3 L Albumin/Globulin Ratio 1.57 L 08/05/23 12:11 RBC Hgb Hct Immature Gran # Monocytes # Eosinophils # Sodium Carbon Dioxide BUN Creatinine Est GFR (CKD-EPI) Glucose POC Glucose (mg/dL) 111 H Calcium Total Bilirubin AST ALT Alkaline Phosphatase Total Protein Albumin Albumin/Globulin Ratio Assessment and Plan Assessment: * Convulsive syncope, likely due to symptomatic bradycardia. Patient's heart rate was 33 at the scene. * New onset atrial fibrillation diagnosed in June 2023. * Hypertension * Diabetes * Chronic renal disease * Elevated liver enzymes, mild Plan: * Patient's syncope is most likely related to symptomatic bradycardia. Patient has been running very low heart rate. Patient had pauses, and the longest pause lasted for about 8 seconds. * I do not believe patient had a seizure, appears most likely convulsive syncope. * Patient is being transferred to ICU * We will check carotid Doppler * EEG has been ordered by primary team, although event does not appear like a seizure, likely from convulsive syncope. * Other medical management as per IM and cardiology. * Dr. Conor Peña Will resume neurology service in the morning. * Thank you for the consult.
[2023-08-06] MEDS ORDERED: VANCOMYCIN IVPB ONE (08:06)
[2023-08-06] MEDS ORDERED: SODIUM CHLORIDE 0.9% IVPB ONE (08:06)
[2023-08-06] MEDS: VANCOMYCIN 1,500 MG in SODIUM CHLORIDE 0.9% 500 ML 500 ML IVPB PRN (09:09)
--- NOTE | 2023-08-06 10:02 | P.PN ---
Subjective Progress Note Date: 08/06/23 The patient is an 82-year-old female who presented to the hospital with syncope. The patient recently had an extensive hospitalization at [facility] for a perforated bowel, however this was just treated with antibiotics. During her hospitalization she developed new onset of atrial fibrillation and was started on atenolol and flecainide. The patient had a similar syncopal episode during the hospitalization and it was thought to be secondary to A-fib with RVR. Overnight the patient had multiple sinus pauses, with the longest being 10 seconds. A TVP was placed and she is scheduled to undergo permanent pacemaker implantation today with Dr. Mckeon. Patient was interviewed and examined resting comfortably in bed. She denies any current chest pain or chest pressure. No dizziness and lightheadedness. GENERAL: Well-appearing, well-nourished and in no acute distress. NECK: Supple without JVD or thyromegaly. LUNGS: Breath sounds clear to auscultation bilaterally. Respiration equal and unlabored. No wheezes, rales or rhonchi. HEART: Regular rate and rhythm without murmurs, rubs or gallops. S1 and S2 heard. EXTREMITIES: Normal range of motion, no edema. No clubbing or cyanosis. Peripheral pulses intact and strong. TELEMETRY: Sinus rhythm with heart rates in the 50s IMPRESSION: Sinus arrest Sick sinus syndrome Paroxysmal atrial fibrillation Recent bowel perforation, unconfirmed PLAN: Continue with preoperative vancomycin Proceed with pacemaker implantation I am dictating on behalf of Dr Kehinde Morse's history/physical and assessment/plan. Objective - Vital Signs Vital signs: Vital Signs Temp 98.4 F 08/06/23 04:00 Pulse 56 L 08/06/23 09:00 Resp 19 08/06/23 09:00 BP 163/75 08/06/23 09:00 Pulse Ox 92 L 08/06/23 09:00 FiO2 Intake & Output 08/05/23 08/06/23 08/06/23 18:59 06:59 18:59 Intake Total 436 650 100 Output Total 0 120 Balance 436 650 -20 Weight 91.5 kg Intake: IV 200 650 100 Sodium Chloride 0.9% 1, 650 100 000 ml @ 50 mls/hr IV . Q20H [facility] Rx#:[id number] Oral 236 Output: Urine 0 120 Other: Voiding Method Bedpan External Catheter # Voids 2 1 # Bowel Movements 1 - Labs CBC & Chem 7: 08/06/23 03:24 08/06/23 03:24 Labs: Abnormal Lab Results - Last 24 Hours (Table) 08/05/23 08/05/23 08/05/23 Range/Units 04:24 12:11 18:25 RBC (3.80-5.40) m/uL Hgb (11.4-16.0) gm/dL Sodium (137-145) mmol/L Carbon Dioxide (22-30) mmol/L BUN 33.6 H (9.0-27.0) mg/dL Creatinine 1.8 H (0.6-1.5) mg/dL Est GFR (CKD-EPI) 28 L (>=60) Glucose (74-99) mg/dL POC Glucose (mg/dL) 111 H 173 H (70-110) mg/dL Calcium (8.4-10.2) mg/dL Total Bilirubin 0.2 L (0.3-1.2) mg/dL Total Protein 5.4 L (6.2-8.2) g/dL Albumin 3.3 L (3.8-4.9) g/dL Albumin/Globulin Ratio 1.57 L (1.60-3.17) Ratio 08/05/23 08/05/23 08/05/23 Range/Units 18:48 18:48 19:45 RBC 3.56 L (3.80-5.40) m/uL Hgb 10.9 L (11.4-16.0) gm/dL Sodium 135 L (137-145) mmol/L Carbon Dioxide (22-30) mmol/L BUN 34 H (9.0-27.0) mg/dL Creatinine 1.78 H (0.6-1.5) mg/dL Est GFR (CKD-EPI) (>=60) Glucose 165 H (74-99) mg/dL POC Glucose (mg/dL) 137 H (70-110) mg/dL Calcium 8.0 L (8.4-10.2) mg/dL Total Bilirubin (0.3-1.2) mg/dL Total Protein 5.4 L (6.2-8.2) g/dL Albumin 2.9 L (3.8-4.9) g/dL Albumin/Globulin Ratio (1.60-3.17) Ratio 08/06/23 08/06/23 08/06/23 Range/Units 03:24 03:24 06:49 RBC 3.59 L (3.80-5.40) m/uL Hgb 10.9 L (11.4-16.0) gm/dL Sodium 135 L (137-145) mmol/L Carbon Dioxide 21 L (22-30) mmol/L BUN 28 H (9.0-27.0) mg/dL Creatinine 1.54 H (0.6-1.5) mg/dL Est GFR (CKD-EPI) (>=60) Glucose 129 H (74-99) mg/dL POC Glucose (mg/dL) 136 H (70-110) mg/dL Calcium 8.3 L (8.4-10.2) mg/dL Total Bilirubin (0.3-1.2) mg/dL Total Protein (6.2-8.2) g/dL Albumin (3.8-4.9) g/dL Albumin/Globulin Ratio (1.60-3.17) Ratio
[2023-08-06] MEDS ORDERED: MIDAZOLAM 2 MG/2 ML VIAL ONE (10:07)
[2023-08-06] MEDS ORDERED: fentaNYL (PF) 50 MCG/ML 2 ML AMP ONE (10:07)
[2023-08-06] MEDS ORDERED: PROPOFOL 10 MG/ML 20 ML VIAL IV ONE (10:07)
[2023-08-06] MEDS: IV FLUID CONTINUATION 1,000 ML IV ONE (10:10)
[2023-08-06] MEDS: IOPAMIDOL-370 100ML BTL INJ ONE (10:10)
--- NOTE | 2023-08-06 10:37 | P.CNPUL ---
History of Present Illness Consult date: 08/06/23 Chief complaint: Syncope History of present illness: Patient is an 82-year-old white female with past medical history significant for atrial fibrillation, diabetes mellitus, hypertension, chronic kidney disease, diverticulitis. Of note, she recently had a stay at [facility] for 5 days. She was found to have a diverticulitis with ruptured diverticulum, which was treated conservatively with antibiotics. While inpatient, she was reportedly diagnosed with new onset atrial fibrillation. She did have a reported syncopal event while inpatient at the outside facility. She was reportedly getting up to the bathroom at that time, and was found between the toilet and the wall. She states that she "blacked out". The patient herself does not recall this event. She denies seizure history. No bowel or bladder incontinence. No focal neurological deficits. She was started on a combination of atenolol, flecainide, and Eliquis on discharge from the outside facility. I do not have access to these records at this time. Patient reportedly was only home for 1 day. While at home, the patient had a subsequent syncopal event. Her daughter witnessed the event, and called 911. EMS reported a heart rate of 30 bpm in route to the hospital. On arrival to the emergency room, on 08/04/23, she was found to be in sinus bradycardia with first-degree AV block. She did reportedly take her atenolol earlier that day. Brain CT showed no acute intracranial process, no hemorrhage or midline shift. She was admitted for observation, and admitted to the cardiac stepdown unit. While inpatient, the patient was noted to have multiple pauses, the longest being 8 seconds. She was taken to the [facility] for a temporary transvenous pacemaker. She did not require any atropine or emergency medications. She is currently lying in bed, in room 259, in a supine position. She is alert and oriented and answers all my questions. Heart rhythm appears to be sinus bradycardia, with a rate of 52 bpm, and there is a first-degree AV block on bedside monitor. The transvenous pacemaker is in place and set up with a backup rate. She denies any chest pain, heart palpitations, lightheadedness. Her atenolol has been stopped. Anticoagulation has been resumed. Her abdomen is soft and nontender. She is passing gas. She reports some loose brown bowel movements while at home. Denies any bright red blood or melanotic stools. Denies any hematemesis. Hemoglobin is at 10.9 g/dL. Denies any fevers. She continues on her antibiotics, which is Augmentin. CBC from yesterday unremarkable. No leukocytosis. CMP from yesterday: Sodium 135, potassium 4.5, chloride 106, serum bicarb 24, BUN 34, creatinine 1.78, glucose 165. LFTs not elevated. Troponins less than 0.012 x 3. NT proBNP 1300. EKG on arrival showed sinus bradycardia with first-degree AV block at a rate of 52 bpm. No obvious acute ischemic changes. Vital signs are stable. I had a chance to evaluate this patient earlier this morning. The patient was calm and comfortable and the patient is currently in normal sinus rhythm with a rate of 55. The plan is to proceed with a permanent pacemaker insertion today. The patient remains in normal sinus rate of 50 cc an hour. Calm and comfortable. Communicating. No focal neurological deficits. No chest pain. Abdomen is soft. No abdominal distention. No nausea or emesis. The patient remains on oral Augmentin and this is antibiotic that the patient was given following her discharge from [facility] on 4 acute diverticulitis. She is passing flatus. Review of Systems CONSTITUTIONAL: Denies any recent significant weight loss or weight gain. EYES: Denies change in vision. EARS, NOSE, MOUTH, THROAT: Denies headaches, denies sore throat. CARDIOVASCULAR: Denies chest pain, palpitations, or lower extremity swelling. Admits syncopal events as reported in HPI. RESPIRATORY: Denies shortness of breath, cough, congestion or hemoptysis. GASTROINTESTINAL:see HPI GENITOURINARY: Denies hematuria, denies infections. MUSKULOSKELETAL: Denies pain, denies swelling. INTEGUMENTARY: Denies rash, denies eczema. NEUROLOGICAL: Denies recent memory loss, no recent seizure activity. PSYCHIATRIC: Denies anxiety, denies depression. HEMATOLOGIC/LYMPHATIC: Denies anemia, denies enlarged lymph node Past Medical History Past Medical History: Atrial Fibrillation, Diabetes Mellitus, Hypertension, Renal Disease History of Any Multi-Drug Resistant Organisms: None Reported Past Surgical History: Cholecystectomy, Orthopedic Surgery Additional Past Surgical History / Comment(s): toes, total shoulder arthroplasty, ankle fracture/rods Past Anesthesia/Blood Transfusion Reactions: No Reported Reaction Past Psychological History: No Psychological Hx Reported Smoking Status: Never smoker Past Alcohol Use History: Daily Past Drug Use History: None Reported Medications and Allergies Home Medications Medication Instructions Recorded Confirmed Type Atorvastatin [Lipitor] 40 mg PO HS 03/19/21 08/04/23 History Ergocalciferol [Vitamin D2 (1250 1,250 mcg PO Q14D 03/19/21 08/04/23 History Mcg = 01301 Iu)] Escitalopram [Lexapro] 10 mg PO HS 03/19/21 08/04/23 History Ezetimibe [Zetia] 10 mg PO DAILY 03/19/21 08/04/23 History Furosemide [Lasix] 20 mg PO Q48H 03/19/21 08/04/23 History Furosemide [Lasix] 40 mg PO Q48H 03/19/21 08/04/23 History Magnesium Oxide 400 mg PO Q48H 03/19/21 08/04/23 History allopurinoL [Zyloprim] 100 mg PO DAILY 03/19/21 08/04/23 History calcitrioL 0.25 mcg PO Q48H 03/19/21 08/04/23 History glipiZIDE [Glucotrol] 5 mg PO BID 03/19/21 08/04/23 History rOPINIRole HCL [Requip] 4 mg PO HS 03/19/21 08/04/23 History Acetaminophen Tab [Tylenol] 650 mg PO Q6H PRN 08/04/23 08/04/23 History Amoxic-Pot Clav 875-125Mg 1 tab PO Q12HR 08/04/23 08/04/23 History [Augmentin 875-125] Apixaban [Eliquis] 2.5 mg PO BID 08/04/23 08/04/23 History Flecainide [Tambocor] 100 mg PO Q12HR 08/04/23 08/04/23 History [place] 3-6-9 1 cap PO DAILY 08/04/23 08/04/23 History Zinc Gluconate [Zinc] 50 mg PO DAILY 08/04/23 08/04/23 History atenoloL [Tenormin] 25 mg PO DAILY 08/04/23 08/04/23 History lisinopriL [Zestril] 10 mg PO DAILY 08/04/23 08/04/23 History Allergies Allergy/AdvReac Type Severity Reaction Status Date / Time No Known Allergies Allergy Verified 08/04/23 12:38 Physical Exam Vitals: Vital Signs Temp Pulse Pulse Resp BP BP Pulse Ox 08/06/23 09:00 56 L 19 163/75 92 L 08/06/23 08:00 54 L 12 159/126 94 L 08/06/23 07:00 55 L 13 192/77 95 08/06/23 06:00 54 L 17 182/115 93 L 08/06/23 05:00 54 L 12 151/138 96 08/06/23 04:00 98.4 F 53 L 12 111/80 90 L 08/06/23 03:00 52 L 22 92/62 94 L 08/06/23 02:00 52 L 15 105/59 93 L 08/06/23 01:00 59 L 14 138/102 95 08/06/23 00:00 98.3 F 52 L 13 149/71 91 L 08/05/23 23:00 50 L 11 L 126/76 96 08/05/23 22:00 52 L 22 128/118 95 08/05/23 21:00 53 L 11 L 138/65 93 L 08/05/23 20:00 98.3 F 55 L 20 167/68 93 L 08/05/23 19:00 54 L 12 95 08/05/23 18:50 57 L 19 93 L 08/05/23 18:40 56 L 14 161/68 95 08/05/23 18:30 56 L 19 163/66 94 L 08/05/23 15:00 97.3 F L 55 L 15 107/58 95 Intake and Output 08/05/23 08/06/23 08/06/23 22:59 06:59 14:59 Intake Total 400 450 100 Output Total 0 0 120 Balance 400 450 -20 Intake: IV 400 450 100 Sodium Chloride 0.9% 1, 200 450 100 000 ml @ 50 mls/hr IV . Q20H [facility] Rx#:[id number] Output: Urine 0 0 120 Other: Voiding Method Bedpan Bedpan External Catheter External Catheter # Voids 1 1 Weight 91.5 kg GENERAL EXAM: Alert, 82-year-old obese white female, lying supine, with TVP with right femoral access, comfortable in no apparent distress. The patient is currently on room air oxygen. She is calm and comfortable. No signs of any respite distress at this point in time. HEAD: Normocephalic and atraumatic EYES: Normal reaction of pupils, equal size. NOSE: Clear with pink turbinates. THROAT: No erythema or exudates. NECK: No masses, no JVD. CHEST: No chest wall deformity. LUNGS: Equal air entry with no crackles, wheeze, rhonchi or dullness. On room air. No conversational dyspnea or accessory muscle use.. CVS: S1 and S2 normal with no audible murmur, regular rhythm. No extra heart so unds Abdominal exam revealed normal bowel sounds. The abdomen was soft, non-tender, and without masses, organomegaly, or appreciable enlargement of the abdominal aorta. SPINE: No scoliosis or deformity SKIN: No rashes CENTRAL NERVOUS SYSTEM: No focal deficits, tone is normal in all 4 extremities. EXTREMITIES: There is no peripheral edema, clubbing, or cyanosis. Peripheral pulses are intact. Right femoral access site clean and dry. No hematoma. Results - Laboratory Findings CBC and BMP: 08/06/23 03:24 08/06/23 03:24 PT/INR, D-dimer PT 11.0 sec (10.0-12.5) 08/05/23 18:48 INR 1.0 (<1.2) 08/05/23 18:48 Abnormal lab findings: Abnormal Labs 08/04/23 08/04/23 08/04/23 12:46 12:46 17:35 RBC 3.74 L Hgb 11.2 L Hct Immature Gran # Monocytes # Eosinophils # Sodium 131 L Carbon Dioxide 20 L BUN 38 H Creatinine 1.58 H Est GFR (CKD-EPI) Glucose 231 H POC Glucose (mg/dL) 153 H Calcium 8.3 L Total Bilirubin AST 45 H ALT 39 H Alkaline Phosphatase 134 H Total Protein 5.6 L Albumin 3.1 L Albumin/Globulin Ratio 08/04/23 08/05/23 08/05/23 20:24 04:24 04:24 RBC 3.29 L Hgb 10.0 L Hct 30.8 L Immature Gran # 0.36 H Monocytes # 1.09 H Eosinophils # 0.53 H Sodium Carbon Dioxide BUN 33.6 H Creatinine 1.8 H Est GFR (CKD-EPI) 28 L Glucose POC Glucose (mg/dL) 197 H Calcium Total Bilirubin 0.2 L AST ALT Alkaline Phosphatase Total Protein 5.4 L Albumin 3.3 L Albumin/Globulin Ratio 1.57 L 08/05/23 08/05/23 08/05/23 12:11 18:25 18:48 RBC 3.56 L Hgb 10.9 L Hct Immature Gran # Monocytes # Eosinophils # Sodium Carbon Dioxide BUN Creatinine Est GFR (CKD-EPI) Glucose POC Glucose (mg/dL) 111 H 173 H Calcium Total Bilirubin AST ALT Alkaline Phosphatase Total Protein Albumin Albumin/Globulin Ratio 08/05/23 08/05/23 08/06/23 18:48 19:45 03:24 RBC 3.59 L Hgb 10.9 L Hct Immature Gran # Monocytes # Eosinophils # Sodium 135 L Carbon Dioxide BUN 34 H Creatinine 1.78 H Est GFR (CKD-EPI) Glucose 165 H POC Glucose (mg/dL) 137 H Calcium 8.0 L Total Bilirubin AST ALT Alkaline Phosphatase Total Protein 5.4 L Albumin 2.9 L Albumin/Globulin Ratio 08/06/23 08/06/23 03:24 06:49 RBC Hgb Hct Immature Gran # Monocytes # Eosinophils # Sodium 135 L Carbon Dioxide 21 L BUN 28 H Creatinine 1.54 H Est GFR (CKD-EPI) Glucose 129 H POC Glucose (mg/dL) 136 H Calcium 8.3 L Total Bilirubin AST ALT Alkaline Phosphatase Total Protein Albumin Albumin/Globulin Ratio Assessment and Plan Assessment: Syncope most likely of a cardiac in nature. This is a cardiac syncope as the patient was severely bradycardic at the time of admission and the patient is status post insertion of a right femoral temporary transvenous pacemaker 08/05/2023. Patient did have recorded pauses while admitted to the cardiac stepdown unit, longest being 8 seconds. Atenolol has been stopped. She has been admitted to the intensive care unit for close monitoring. The plan is to proceed with a permanent pacemaker insertion today. Sinus bradycardia with first-degree AV block, hemodynamically stable on no pressors. Recent history of atrial fibrillation, was placed on a combination of atenolol, flecainide, and Eliquis at outside facility. This was a new onset atrial fibrillation that occurred at a recent hospitalization at [facility]. Recent history of diverticulitis with perforated diverticulum, reportedly treated conservatively at [facility], discharged less than 24 hours before presenting to our emergency room with questionable subsequent syncopal event. She continues on Augmentin. Diabetes mellitus, type II History of hyperlipidemia Chronic kidney disease, stage III Anemia of chronic disease, secondary to above, hemoglobin stable Obesity, with a BMI of 34.2 kg/m Plan: Patient is currently on room air oxygen Patient is hemodynamically stable Patient is status post transvenous temporary pacemaker insertion with a backup rate of 50 and her current rhythm is sinus Plan is to proceed with a pacemaker insertion today Hold beta-blockers Continue flecainide Continue anticoagulation with [facility] Weaving Instructor on the case Continue Augmentin IV fluids with normal saline at rate of 50 cc an hour Continue Lipitor Insulin sliding scale coverage No signs of any abdominal tenderness at this point in time. Will continue to follow make further recommendations based on her progress. Time with Patient: Greater than 30
[2023-08-06] MEDS: ceFAZolin 1 GM in SODIUM CHLORIDE 0.9% IRRIG BTL 250 ML IRRIGATION PRN (10:39)
[2023-08-06] MEDS ORDERED: LIDOCAINE 1% INJ 10MG/ML (20 ML MDV) ONE (10:40)
[2023-08-06] MEDS: LIDOCAINE 1% INJ 10MG/ML (20 ML MDV) SQ ONE ×4 (10:57→11:07)
--- NOTE | 2023-08-06 11:53 | CA ---
Transthoracic Echo Report Name: Sosa Tobias Age: 82 Gender: F : 1940 Exam Date: 08/06/2023 08:08 Exam Location: [place] [facility] Ht (in): 62 Wt (lb): 187 Ordering Physician: Kehinde Morse MD ([id number]) Attending/Referring Phys: Dice Dealer Lisa Pearce RDCS Procedure CPT: Indications: lvef Cardiac Hx: Technical Quality: Fair Contrast 1: Total Dose (mL): Contrast 2: Total Dose (mL): MEASUREMENTS (Male / Female) Normal Values 2D ECHO LV Diastolic Diameter PLAX 4.3 cm 4.2 - 5.9 / 3.9 - 5.3 cm LV Systolic Diameter PLAX 3.0 cm IVS Diastolic Thickness 1.1 cm 0.6 - 1.0 / 0.6 - 0.9 cm LVPW Diastolic Thickness 1.0 cm 0.6 - 1.0 / 0.6 - 0.9 cm LV Relative Wall Thickness 0.5 RV Internal Dim ED PLAX 2.9 cm LA Volume 69.4 cm??? 18 - 58 / 22 - 52 cm??? LA Volume Index 35.3 cm???/m??? 16 - 28 cm???/m??? M-MODE Aortic Root Diameter MM 2.5 cm LA Systolic Diameter MM 4.7 cm LA Ao Ratio MM 1.9 AV Cusp Separation MM 1.6 cm DOPPLER AV Peak Velocity 142.7 cm/s AV Peak Gradient 8.1 mmHg AV Mean Velocity 95.1 cm/s AV Mean Gradient 4.0 mmHg AV Velocity Time Integral 35.8 cm LVOT Peak Velocity 95.6 cm/s LVOT Peak Gradient 3.7 mmHg LVOT Velocity Time Integral 23.7 cm MV Peak Velocity 157.6 cm/s MV Peak Gradient 9.9 mmHg MV Mean Velocity 72.0 cm/s MV Mean Gradient 2.6 mmHg MV Velocity Time Integral 42.5 cm MV Area PHT 2.6 cm??? Mitral E Point Velocity 115.1 cm/s Mitral A Point Velocity 102.5 cm/s Mitral E to A Ratio 1.1 MV Deceleration Time 295.7 ms MV E' Velocity 5.7 cm/s Mitral E to MV E' Ratio 20.1 TR Peak Velocity 265.6 cm/s TR Peak Gradient 28.2 mmHg Right Ventricular Systolic Press 31.8 mmHg FINDINGS Left Ventricle Mildly increased left ventricular wall thickness. Left ventricular cavity size normal. Normal left ventricular systolic function with no obvious regional wall motion abnormalities. Left ventricular ejection fraction is estimated at 55-60 %. Grade 1 diastolic dysfunction. Right Ventricle Normal right ventricular size and function. Right ventricular systolic pressure within normal limits. Right Atrium Normal right atrial size. Left Atrium Moderately increased left atrial volume. Mildly increased left atrial area. Mitral Valve Structurally normal mitral valve. Mild mitral annular calcification. Mild mitral regurgitation. Aortic Valve Trileaflet aortic valve. No aortic stenosis. Trace aortic regurgitation. Tricuspid Valve Structurally normal tricuspid valve. Mild tricuspid regurgitation. Pulmonic Valve Structurally normal pulmonic valve. Pericardium No pericardial effusion. Echo free space anterior to the right ventricle likely represents a fat pad. Aorta Normal size aortic root and proximal ascending aorta. CONCLUSIONS Normal LV size and systolic function. Mild diastolic dysfunction. Mild mitral and tricuspid regurgitation. No significant pulmonary hypertension no evidence of any clearcut pericardial effusion. Probable fat pad. Previewed by: Dr. Allen Moe MD (Electronically Signed) Final Date: 06 August 2023 11:52
[2023-08-06] MEDS ORDERED: ACETAMINOPHEN TAB 325 MG TAB PO PRN (12:06)
[2023-08-06 13:30] LABS: Glucose,Whole Blood 123 mg/dL (70-110)
--- NOTE | 2023-08-06 13:32 | P.EPPROC ---
- EP Procedure Note Electrophysiology Procedure Note: Diagnosis Symptomatic bradycardia secondary to severe sinus pauses associated with syncope Tachybradycardia syndrome PAF with RVR difficult to control, recent hospital admission for that Procedure Dual-chamber pacemaker implantation Details Patient was brought to the EP lab in a fasting state. Written informed consent was obtained prior to the procedure. Conscious sedation provided. IV antibiotics including IV vancomycin administered. Local anesthesia administered. A 4 cm incision made in the pectoral area. Subfascial pocket made. Venous accesses obtained Venous sheaths placed. Leads placed in the right heart Atrial lead position the right atrial appendage. Cordon screw-in lead tendril STS model #2088 TC, 46 cm in length P waves 1.0 mV, pacing impedance 510 ohms and pacing threshold 0. 7 5 V at point 5 ms 10 V test negative RV lead position in the RV apex. Passive lead Isoflex 1948, 58 cm in length R waves 12.1 mV, pace impedance 750 ohms and pacing threshold 1.1 V at point 5 ms Device tutoring manager: [employer] MRI dual-chamber model number [id number] Dual-chamber pacemaker device connected to the leads and placed in the subfascial pocket Patient tolerated the procedure well without acute complications TVP removed under fluoroscopy and Vascade closure applied Pacemaker programming DDDR 50-100 bpm
[2023-08-06] MEDS: ACETAMINOPHEN IV (For NPO) 1,000 MG in EMPTY BAG 1 BAG IVPB ONE (14:54)
--- NOTE | 2023-08-06 15:01 | P.PN ---
Subjective Progress Note Date: 08/06/23 Patient is a an 82-year-old female with recently diagnosed atrial fibrillation anticoagulated with Eliquis, hypertension, dyslipidemia, type 2 diabetes mellitus, GERD, and chronic kidney disease stage IIIb who presented to the emergency department due to 2 multiple syncopal episodes at home. Of note patient had a recent hospitalization at [facility] for diverticulitis with perforation where she was diagnosed with new onset atrial fibrillation and started on flecainide and Eliquis in addition to her long prescribed atenolol. On arrival here vitals were remarkable for a pulse of 53. EMS reported heart rates in the 30s upon arrival at the home. Initial EKG showed sinus bradycardia at 52 with a first-degree AV block. Initial checks x-ray showed no acute cardiopulmonary process. Initial laboratory analysis was remarkable for hemoglobin 11.2, BUN 38, creatinine 1.58 (baseline 1.8), AST 45, ALT 39, troponin less than 0.012, and BNP 1360. Arrangements were made for observation with consultation to cardiology for recurrent syncopal events and sinus bradycardia. Patient underwent head CT which showed no acute process. She was evaluated by cardiology who recommended a TSH, obtaining recent echocardiogram from [place], continuing off of atenolol but continuing on flecainide. On the afternoon of 08/06 she had a heart rate down into the 18s while she was sleeping and sinus pauses with the longest being 8 seconds. She subsequently was taken to the cardiac Line Analyst and had a temporary pacemaker placed. She was subsequently transferred to the ICU and critical care was consulted. Patient seen and examined at bedside. She is doing well, no complaints at this time. No longer dizzy. No shortness of breath, no chest pain. Vital signs reviewed General: Nontoxic, no distress, appears at stated age Cardiovascular: S1S2 reg, no murmur Lungs: CTA bilateral, no rhonchi, no rales, no accessory muscle use Abdominal: Soft, nontender to palpation, no guarding Ext: No gross muscle atrophy, no edema b/l lower extremities, no contractures Neuro: CN II-XI grossly intact, no focal neuro deficits Psych: Alert, oriented, appropriate affect Assessment/Plan: Bradycardia with significant sinus pauses status post temporary pacemaker placement 08/05/2023 Paroxysmal atrial fibrillation Multiple syncopal episodes - Patient currently has temporary pacemaker in place. - Plan is for PPM today - Continue with Eliquis 2.5 mg p.o. twice daily, flecainide 50 mg every 12 hours - Continue to hold beta-emely Diabetes mellitus type 2 - Continue with sliding scale insulin - Continue to hold glipizide - Follow blood sugars Normocytic anemia - Hemoglobin stable at 10.0. Patient is on anticoagulant with Eliquis but denies any noted bleeding. - Will continue to monitor with repeat a.m. labs. Recently diagnosed diverticulitis with perforation -Augmentin 875/125 mg tablets to complete outpatient course Hypertension -lisinopril 10 mg daily. -follow BP given atenolol is being discontinued Hyperlipidemia -Atorvastatin 40 mg nightly, Zetia 10 mg daily Chronic kidney disease, Stage IIIb - Baseline cr 1.8 - follow Cr - Avoid nephrotoxic agents Mild hyponatremia, improved Imaging: None new Data Review: Labs reviewed from this morning include CBC and BMP which are remarkable for hemoglobin 10.9, sodium 135, carbon oxide 21, BUN 28, creatinine 1.54. DVT prophylaxis: Eliquis Anticipated discharge date: Pending Clinical Course Anticipated discharge place: Pending Clinical Course This dictation was prepared using [employer] voice recognition software. Though every attempt is made to correct errors during dictation some may still exist. Objective - Vital Signs Vital signs: Vital Signs Temp 98.4 F 08/06/23 04:00 Pulse 55 L 08/06/23 07:00 Resp 13 08/06/23 07:00 BP 192/77 08/06/23 07:00 Pulse Ox 95 08/06/23 07:00 FiO2 Intake & Output 08/05/23 08/06/23 08/06/23 18:59 06:59 18:59 Intake Total 436 650 Output Total 0 Balance 436 650 Weight 91.5 kg Intake: IV 200 650 Sodium Chloride 0.9% 1, 650 000 ml @ 50 mls/hr IV . Q20H [facility] Rx#:[id number] Oral 236 Output: Urine 0 Other: Voiding Method Bedpan External Catheter # Voids 2 1 # Bowel Movements 1 - Labs CBC & Chem 7: 08/06/23 03:24 08/06/23 03:24 Labs: Abnormal Lab Results - Last 24 Hours (Table) 08/05/23 08/05/23 08/05/23 Range/Units 04:24 04:24 12:11 RBC 3.29 L (4.10-5.20) X 10*6/uL Hgb 10.0 L (12.0-15.0) g/dL Hct 30.8 L (37.2-46.3) % Immature Gran # 0.36 H (0.00-0.04) X 10*3/uL Monocytes # 1.09 H (0.20-1.00) X 10*3/uL Eosinophils # 0.53 H (0.04-0.35) X 10*3/uL Sodium (137-145) mmol/L Carbon Dioxide (22-30) mmol/L BUN 33.6 H (9.0-27.0) mg/dL Creatinine 1.8 H (0.6-1.5) mg/dL Est GFR (CKD-EPI) 28 L (>=60) Glucose (74-99) mg/dL POC Glucose (mg/dL) 111 H (70-110) mg/dL Calcium (8.4-10.2) mg/dL Total Bilirubin 0.2 L (0.3-1.2) mg/dL Total Protein 5.4 L (6.2-8.2) g/dL Albumin 3.3 L (3.8-4.9) g/dL Albumin/Globulin Ratio 1.57 L (1.60-3.17) Ratio 08/05/23 08/05/23 08/05/23 Range/Units 18:25 18:48 18:48 RBC 3.56 L (4.10-5.20) X 10*6/uL Hgb 10.9 L (12.0-15.0) g/dL Hct (37.2-46.3) % Immature Gran # (0.00-0.04) X 10*3/uL Monocytes # (0.20-1.00) X 10*3/uL Eosinophils # (0.04-0.35) X 10*3/uL Sodium 135 L (137-145) mmol/L Carbon Dioxide (22-30) mmol/L BUN 34 H (9.0-27.0) mg/dL Creatinine 1.78 H (0.6-1.5) mg/dL Est GFR (CKD-EPI) (>=60) Glucose 165 H (74-99) mg/dL POC Glucose (mg/dL) 173 H (70-110) mg/dL Calcium 8.0 L (8.4-10.2) mg/dL Total Bilirubin (0.3-1.2) mg/dL Total Protein 5.4 L (6.2-8.2) g/dL Albumin 2.9 L (3.8-4.9) g/dL Albumin/Globulin Ratio (1.60-3.17) Ratio 08/05/23 08/06/23 08/06/23 Range/Units 19:45 03:24 03:24 RBC 3.59 L (4.10-5.20) X 10*6/uL Hgb 10.9 L (12.0-15.0) g/dL Hct (37.2-46.3) % Immature Gran # (0.00-0.04) X 10*3/uL Monocytes # (0.20-1.00) X 10*3/uL Eosinophils # (0.04-0.35) X 10*3/uL Sodium 135 L (137-145) mmol/L Carbon Dioxide 21 L (22-30) mmol/L BUN 28 H (9.0-27.0) mg/dL Creatinine 1.54 H (0.6-1.5) mg/dL Est GFR (CKD-EPI) (>=60) Glucose 129 H (74-99) mg/dL POC Glucose (mg/dL) 137 H (70-110) mg/dL Calcium 8.3 L (8.4-10.2) mg/dL Total Bilirubin (0.3-1.2) mg/dL Total Protein (6.2-8.2) g/dL Albumin (3.8-4.9) g/dL Albumin/Globulin Ratio (1.60-3.17) Ratio 08/06/23 Range/Units 06:49 RBC (4.10-5.20) X 10*6/uL Hgb (12.0-15.0) g/dL Hct (37.2-46.3) % Immature Gran # (0.00-0.04) X 10*3/uL Monocytes # (0.20-1.00) X 10*3/uL Eosinophils # (0.04-0.35) X 10*3/uL Sodium (137-145) mmol/L Carbon Dioxide (22-30) mmol/L BUN (9.0-27.0) mg/dL Creatinine (0.6-1.5) mg/dL Est GFR (CKD-EPI) (>=60) Glucose (74-99) mg/dL POC Glucose (mg/dL) 136 H (70-110) mg/dL Calcium (8.4-10.2) mg/dL Total Bilirubin (0.3-1.2) mg/dL Total Protein (6.2-8.2) g/dL Albumin (3.8-4.9) g/dL Albumin/Globulin Ratio (1.60-3.17) Ratio
[2023-08-06 20:18] LABS: Glucose,Whole Blood 247 mg/dL (70-110)
[2023-08-06] MEDS: FLECAINIDE 50 MG TAB PO SCH (21:25)
--- NOTE | 2023-08-06 23:21 | EEG ---
ELECTROENCEPHALOGRAM REPORT CLINICAL HISTORY: This is an 82-year-old woman with a syncopal episode. The video EEG is obtained to evaluate for seizure epileptiform activity. RELEVANT MEDICATION: The patient is not on any antiepileptic drugs. EEG TYPE: This is a routine 21-channel EEG with video using the 10/20 electrode placement system. DESCRIPTION: Wakefulness and drowsiness are obtained. During awake state, the posterior- dominant rhythm consists of [id number] voltage of 8 to 8.5 hertz activity. There is no physiological stage 2 sleep architecture. There is no focal slowing. There is moderate amount of myogenic artifact, mostly left temporal more than the right temporal. Interictal and ictal is none. ACTIVATION PROCEDURE: Photic stimulation did not evoke a posterior driving response. There is no abnormality during the photic stimulation. Hyperventilation is not performed. CLINICAL INTERPRETATION: This is a normal routine EEG. There is no focal slowing, epileptiform discharge, or seizure on the EEG. A normal routine EEG does not rule out underlying epilepsy. Clinical correlation is recommended. MMMICHELE / CIARANN: [id number] / TERENCE
[2023-08-07 04:59] LABS: Basophils % (A) 0 %; Eosinophils # (A) 0.3 k/uL (0-0.7); Eosinophils % (A) 3 %; HCT 32.8 % (34.0-46.0); HGB 10.3 gm/dL (11.4-16.0); Lymphocytes # (A) 1.4 k/uL (1.0-4.8); Lymphocytes % (A) 13 %; MCH 30.4 pg (25.0-35.0); MCHC 31.4 g/dL (31.0-37.0); Mean Platelet Volume 8.3; Monocytes # (A) 0.6 k/uL (0-1.0); Monocytes % (A) 5 %; Neutrophils # (A) 8.4 k/uL (1.3-7.7); Neutrophils % (A) 77 %; Platelet Count 334 k/uL (150-450); RBC 3.39 m/uL (3.80-5.40); RDW 14.2 % (11.5-15.5); WBC 10.9 k/uL (3.8-10.6)
[2023-08-07 05:11] LABS: African American GFR (CKD) 42 (>60 ml/min/1.73 sqM); Anion Gap 8 mmol/L; Blood Urea Nitrogen 21 mg/dL (7-17); Calcium 8.3 mg/dL (8.4-10.2); Carbon Dioxide 20 mmol/L (22-30); Chloride 107 mmol/L (98-107); Glucose 137 mg/dL (74-99); Non-African American GFR(CKD) 37 (>60 ml/min/1.73 sqM); Potassium 4.8 mmol/L (3.5-5.1); Sodium 135 mmol/L (137-145)
[2023-08-07 06:49] LABS: Glucose,Whole Blood 126 mg/dL (70-110)
--- NOTE | 2023-08-07 07:47 | XR ---
EXAMINATION TYPE: XR chest 2V DATE OF EXAM: 08/07/2023 HISTORY: Shortness of breath. COMPARISON: 08/04/2023 TECHNIQUE: Single view of the chest is submitted. FINDINGS: Demonstrated are scattered senescent parenchymal change. Dual-lead pacer device with distal leads wi thin the right atrium and right ventricle respectively. Patchy increased density right lower lobe could reflect infiltrate. Correlate clinically. The heart is stable. Hilar and mediastinal structures are within normal limits. Degenerative changes are seen of the dorsal spine. IMPRESSION: 1. Patchy increased density right lower lobe could reflect infiltrate. Correlate clinically. 2. Dual-lead pacer appropriately placed. No evidence for pneumothorax.
[2023-08-07] MEDS: atenoloL 25 MG TAB PO SCH (08:58)
--- NOTE | 2023-08-07 09:33 | P.PN ---
Subjective Progress Note Date: 08/07/23 The patient is an 82-year-old female who presented to the hospital with syncope. The patient recently had an extensive hospitalization at [place] for a perforated bowel, however this was just treated with antibiotics. During her hospitalization she developed new onset of atrial fibrillation and was started on atenolol and flecainide. The patient had a similar syncopal episode during the hospitalization and it was thought to be secondary to A-fib with RVR. Overnight the patient had multiple sinus pauses, with the longest being 10 seconds. A TVP was placed and she underwent dual chamber permanent pacemaker implantation with Dr. Morse on 08/06/2023. Chest x-ray shows lead placement in the right atrium and right ventricle. Device has been interrogated by livestock speculator. Patient was interviewed and examined resting comfortably in the recliner chair. She states she does not have any discomfort this morning. No dizziness or lightheadedness when ambulating. GENERAL: Well-appearing, well-nourished and in no acute distress. NECK: Supple without JVD or thyromegaly. LUNGS: Breath sounds clear to auscultation bilaterally. Respiration equal and unlabored. No wheezes, rales or rhonchi. HEART: Regular rate and rhythm without murmurs, rubs or gallops. S1 and S2 heard. Dressing is clean dry and intact. Left arm is in sling. EXTREMITIES: Normal range of motion, no edema. No clubbing or cyanosis. Peripheral pulses intact and strong. TELEMETRY: Sinus rhythm with heart rates in the 50s IMPRESSION: Sinus arrest Sick sinus syndrome Paroxysmal atrial fibrillation Recent bowel perforation, unconfirmed PLAN: Continue atenolol and low-dose flecainide Patient may be discharged from the cardiac standpoint Outpatient follow-up with device clinic and Dr. Christensen in 1 week There after patient may follow-up with primary manager gas in [place] I am dictating on behalf of Dr Kehinde Morse's history/physical and assessment/plan. Objective - Vital Signs Vital signs: Vital Signs Temp 97.3 F L 08/07/23 07:30 Pulse 58 L 08/07/23 07:30 Resp 16 08/07/23 07:35 BP 150/71 08/07/23 07:30 Pulse Ox 91 L 08/07/23 06:00 FiO2 Intake & Output 08/06/23 08/07/23 08/07/23 18:59 06:59 18:59 Intake Total 450 260 Output Total 120 775 Balance 330 -515 Weight 90.6 kg Intake: IV 450 260 ACETAMINOPHEN IV (For NPO 100 ) 1,000 mg In Empty Bag 1 bag @ 400 mls/hr IVPB ONCE ONE Rx#:[id number] Sodium Chloride 0.9% 1, 150 260 000 ml @ 50 mls/hr IV . Q20H [facility] Rx#:[id number] ceFAZolin 2 gm In Sodium 50 Chloride 0.9% 50 ml @ 100 mls/hr IVPB ONCE PRN Rx# :[id number] Output: Urine 120 775 Other: Voiding Method External Catheter External Catheter - Labs CBC & Chem 7: 08/07/23 04:00 08/07/23 04:00 Labs: Abnormal Lab Results - Last 24 Hours (Table) 08/06/23 08/06/23 08/07/23 Range/Units 13:27 20:16 04:00 WBC 10.9 H (3.8-10.6) k/uL RBC 3.39 L (3.80-5.40) m/uL Hgb 10.3 L (11.4-16.0) gm/dL Hct 32.8 L (34.0-46.0) % Neutrophils # 8.4 H (1.3-7.7) k/uL Sodium (137-145) mmol/L Carbon Dioxide (22-30) mmol/L BUN (7-17) mg/dL Creatinine (0.52-1.04) mg/dL Glucose (74-99) mg/dL POC Glucose (mg/dL) 123 H 247 H (70-110) mg/dL Calcium (8.4-10.2) mg/dL 08/07/23 08/07/23 Range/Units 04:00 06:47 WBC (3.8-10.6) k/uL RBC (3.80-5.40) m/uL Hgb (11.4-16.0) gm/dL Hct (34.0-46.0) % Neutrophils # (1.3-7.7) k/uL Sodium 135 L (137-145) mmol/L Carbon Dioxide 20 L (22-30) mmol/L BUN 21 H (7-17) mg/dL Creatinine 1.37 H (0.52-1.04) mg/dL Glucose 137 H (74-99) mg/dL POC Glucose (mg/dL) 126 H (70-110) mg/dL Calcium 8.3 L (8.4-10.2) mg/dL
--- NOTE | 2023-08-07 10:08 | P.DS ---
Providers Date of admission: 08/04/23 13:28 Expected date of discharge: 08/07/23 Attending physician: Maribell Franco DO Consults: 08/04/23 13:28 Consult Physician Urgent Consulting Provider: Chaz Coombs Consult Reason/Comments: Syncope, bradycardia Do you want consulting provider notified?: Yes 08/05/23 10:11 Consult Physician Routine Consulting Provider: Blair Nunez Consult Reason/Comments: recurrent syncope, pts daughter reports BUE shaking during event Do you want consulting provider notified?: Yes 08/05/23 17:01 Consult Physician Routine Consulting Provider: Guanako Peña Consult Reason/Comments: ICU management Do you want consulting provider notified?: Yes Primary care physician: Physician Nonstaff Hospital Course: Discharge Diagnosis: Bradycardia with significant sinus pauses status post temporary pacemaker placement 08/05/2023 Paroxysmal atrial fibrillation Multiple syncopal episodes Diabetes mellitus type 2 Normocytic anemia Recently diagnosed diverticulitis with perforation Hypertension Hyperlipidemia Chronic kidney disease, Stage IIIb Mild hyponatremia, improved Hospital Course: Patient is a an 82-year-old female with recently diagnosed atrial fibrillation anticoagulated with Eliquis, hypertension, dyslipidemia, type 2 diabetes mellitus, GERD, and chronic kidney disease stage IIIb who presented to the e mergency department due to 2 multiple syncopal episodes at home. Of note patient had a recent hospitalization at [facility] for diverticulitis with perforation where she was diagnosed with new onset atrial fibrillation and started on flecainide and Eliquis in addition to her long prescribed atenolol. On arrival here vitals were remarkable for a pulse of 53. EMS reported heart rates in the 30s upon arrival at the home. Initial EKG showed sinus bradycardia at 52 with a first-degree AV block. Initial checks x-ray showed no acute cardiopulmonary process. Initial laboratory analysis was remarkable for hemoglobin 11.2, BUN 38, creatinine 1.58 (baseline 1.8), AST 45, ALT 39, troponin less than 0.012, and BNP 1360. Arrangements were made for observation with consultation to cardiology for recurrent syncopal events and sinus bradycardia. Patient underwent head CT which showed no acute process. She was evaluated by cardiology who recommended a TSH, obtaining recent echocardiogram from [place], continuing off of atenolol but continuing on flecainide. On the afternoon of 08/06 she had a heart rate down into the 18s while she was sleeping and sinus pauses with the longest being 8 seconds. She subsequently was taken to the cardiac Care Technician and had a temporary pacemaker placed. She was subsequently transferred to the ICU and critical care was consulted. Permanent pacemaker placed on the afternoon of 08/06/2023 by electrophysiology. She tolerated the procedure well without any immediate postoperative complications. The next morning pacemaker was interrogated and she was cleared for discharge by electrophysiology. Follow-up: Patient has a primary river crossing supervisor in the [facility]. She will need to be seen by our cardiology office in device clinic in 1 week patient is aware. She is also aware that she needs to use her sling and follow her postoperative instructions closely. We discussed that she can use Tylenol [id number] as needed for pain and she is in agreement with that. We discussed completing her course of antibiotics from her recent perforated diverticulitis and that I suggest a course of iron due to her anemia. She will also follow with her primary care physician in the next 1 week. Medication changes include decreasing flecainide to 50 mg twice daily and adding ferrous sulfate 325 mg once daily. Patient seen and examined at bedside. Her pain in her arm is denies any shortness of breath. No lightheaded or dizziness. No nausea. Vital signs reviewed and stable. General: Nontoxic, no distress, appears at stated age Cardiovascular: S1S2 reg, no murmur, positive posterior tibial pulse bilateral, Lungs: CTA bilateral, no rhonchi, no rales, no accessory muscle use Abdominal: Soft, nontender to palpation, no guarding, no appreciable organomegaly Ext: No gross muscle atrophy, no edema b/l lower extremities, no contractures Neuro: CN II-XI grossly intact, no focal neuro deficits Psych: Alert, oriented, appropriate affect A total of minutes of time were spent preparing this complex discharge summary. Patient was discharged on. This dictation was prepared using [employer] voice recognition software. Though every attempt is made to correct errors during dictation some may still exist. Patient Condition at Discharge: Stable Plan - Discharge Summary New Discharge Prescriptions: New Flecainide [Tambocor] 50 mg PO Q12HR #60 tab Ferrous Sulfate [Iron (65 MG Elemental)] 325 mg PO DAILY #30 tab Continue Ezetimibe [Zetia] 10 mg PO DAILY allopurinoL [Zyloprim] 100 mg PO DAILY Furosemide [Lasix] 20 mg PO Q48H Furosemide [Lasix] 40 mg PO Q48H Escitalopram [Lexapro] 10 mg PO HS glipiZIDE [Glucotrol] 5 mg PO BID Ergocalciferol [Vitamin D2 (1250 Mcg = 08780 Iu)] 1,250 mcg PO Q14D Atorvastatin [Lipitor] 40 mg PO HS Zinc Gluconate [Zinc] 50 mg PO DAILY atenoloL [Tenormin] 25 mg PO DAILY [place] 3-6-9 1 cap PO DAILY Apixaban [Eliquis] 2.5 mg PO BID Magnesium Oxide 400 mg PO Q48H rOPINIRole HCL [Requip] 4 mg PO HS calcitrioL 0.25 mcg PO Q48H lisinopriL [Zestril] 10 mg PO DAILY Amoxic-Pot Clav 875-125Mg [Augmentin 875-125] 1 tab PO Q12HR Acetaminophen Tab [Tylenol] 650 mg PO Q6H PRN PRN Reason: Mild Pain (Scale 1 To 3) Discontinued Flecainide [Tambocor] 100 mg PO Q12HR Discharge Medication List Atorvastatin [Lipitor] 40 mg PO HS 03/19/21 [History] Ergocalciferol [Vitamin D2 (1250 Mcg = 73625 Iu)] 1,250 mcg PO Q14D 03/19/21 [History] Escitalopram [Lexapro] 10 mg PO HS 03/19/21 [History] Ezetimibe [Zetia] 10 mg PO DAILY 03/19/21 [History] Furosemide [Lasix] 20 mg PO Q48H 03/19/21 [History] Furosemide [Lasix] 40 mg PO Q48H 03/19/21 [History] Magnesium Oxide 400 mg PO Q48H 03/19/21 [History] allopurinoL [Zyloprim] 100 mg PO DAILY 03/19/21 [History] calcitrioL 0.25 mcg PO Q48H 03/19/21 [History] glipiZIDE [Glucotrol] 5 mg PO BID 03/19/21 [History] rOPINIRole HCL [Requip] 4 mg PO HS 03/19/21 [History] Acetaminophen Tab [Tylenol] 650 mg PO Q6H PRN 08/04/23 [History] Amoxic-Pot Clav 875-125Mg [Augmentin 875-125] 1 tab PO Q12HR 08/04/23 [History] Apixaban [Eliquis] 2.5 mg PO BID 08/04/23 [History] [place] 3-6-9 1 cap PO DAILY 08/04/23 [History] Zinc Gluconate [Zinc] 50 mg PO DAILY 08/04/23 [History] atenoloL [Tenormin] 25 mg PO DAILY 08/04/23 [History] lisinopriL [Zestril] 10 mg PO DAILY 08/04/23 [History] Ferrous Sulfate [Iron (65 MG Elemental)] 325 mg PO DAILY #30 tab 08/07/23 [Rx] Flecainide [Tambocor] 50 mg PO Q12HR #60 tab 08/07/23 [Rx] Follow up Appointment(s)/Referral(s): Nonstaff,Physician [Primary Care Provider] - 1-2 days Joseph Christensen MD [STAFF PHYSICIAN] - 1 Week (and device clinic) Patient Instructions/Handouts: Pacemaker (DC) Activity/Diet/Wound Care/Special Instructions: Activity: As tolerated Diet: Consistent carb Special Instructions: Follow-up with Dr. Christensen in 1 week and with the device clinic, you can then follow with your river crossing supervisor at [place] Please follow with your primary care provider in 1 week. Discharge Disposition: HOME SELF-CARE
[2023-08-07 11:49] VITALS: BP 116/75; PULSE 54; RESP 18
[2023-08-07 12:00] LABS: Glucose,Whole Blood 172 mg/dL (70-110)
[2023-08-07 12:30] VITALS: TEMP 97.1
--- NOTE | 2023-08-07 13:08 | P.PN ---
Subjective Progress Note Date: 08/07/23 Patient is an 82-year-old white female with past medical history significant for atrial fibrillation, diabetes mellitus, hypertension, chronic kidney disease, diverticulitis. Of note, she recently had a stay at [facility] for 5 days. She was found to have a diverticulitis with ruptured diverticulum, which was treated conservatively with antibiotics. While inpatient, she was reportedly diagnosed with new onset atrial fibrillation. She did have a reported syncopal event while inpatient at the outside facility. She was reportedly getting up to the bathroom at that time, and was found between the toilet and the wall. She states that she "blacked out". The patient herself does not recall this event. She denies seizure history. No bowel or bladder incontinence. No focal neurological deficits. She was started on a combination of atenolol, flecainide, and Eliquis on discharge from the outside facility. I do not have access to these records at this time. Patient reportedly was only home for 1 day. While at home, the patient had a subsequent syncopal event. Her daughter witnessed the event, and called 911. EMS reported a heart rate of 30 bpm in route to the hospital. On arrival to the emergency room, on 08/04/23, she was found to be in sinus bradycardia with first-degree AV block. She did reportedly take her atenolol earlier that day. Brain CT showed no acute intracranial process, no hemorrhage or midline shift. She was admitted for observation, and admitted to the cardiac stepdown unit. While inpatient, the patient was noted to have multiple pauses, the longest being 8 seconds. She was taken to the [facility] for a temporary transvenous pacemaker. She did not require any atropine or emergency medications. She is currently lying in bed, in room 259, in a supine position. She is alert and oriented and answers all my questions. Heart rhythm appears to be sinus bradycardia, with a rate of 52 bpm, and there is a first-degree AV block on bedside monitor. The transvenous pacemaker is in place and set up with a backup rate. She denies any chest pain, heart palpitations, lightheadedness. Her atenolol has been stopped. Anticoagulation has been resumed. Her abdomen is soft and nontender. She is passing gas. She reports some loose brown bowel movements while at home. Denies any bright red blood or melanotic stools. Denies any hematemesis. Hemoglobin is at 10.9 g/dL. Denies any fevers. She continues on her antibiotics, which is Augmentin. CBC from yesterday unremarkable. No leukocytosis. CMP from yesterday: Sodium 135, potassium 4.5, chloride 106, serum bicarb 24, BUN 34, creatinine 1.78, glucose 165. LFTs not elevated. Troponins less than 0.012 x 3. NT proBNP 1300. EKG on arrival showed sinus bradycardia with first-degree AV block at a rate of 52 bpm. No obvious acute ischemic changes. Vital signs are stable. I had a chance to evaluate this patient earlier this morning. The patient was calm and comfortable and the patient is currently in normal sinus rhythm with a rate of 55. The plan is to proceed with a permanent pacemaker insertion today. The patient remains in normal sinus rate of 50 cc an hour. Calm and comfortable. Communicating. No focal neurological deficits. No chest pain. Abdomen is soft. No abdominal distention. No nausea or emesis. The patient remains on oral Augmentin and this is antibiotic that the patient was given following her discharge from [facility] on 4 acute diverticulitis. She is passing flatus. On today's evaluation of 08/07/2023, the patient is doing well and she is clinically and hemodynamically stable. The patient underwent a dual-chamber pacemaker insertion. The current rhythm is sinus with first-degree AV block. The patient is currently on metoprolol 25 mg p.o. daily and flecainide dose has been modified to 50 mg on a daily basis. The chest x-ray that was done following the pacemaker insertion showed no acute abnormalities. The device was inserted without any complications or pneumothorax. No nausea. No vomiting. Abdominal pain. Remains on Augmentin. WBC count of 10.9 with a hemoglobin 10.8 and platelet count of 334. BUN is at 21 with a creatinine of 1.37 and sodium is at 135. Noted the patient has sustained an acute kidney injury and the creatinine continues to improve. No nausea. No vomiting. No chest pain. No syncope. The EEG was also performed yesterday and showed no evidence of any seizure activity. Objective - Vital Signs Vital signs: Vital Signs Temp 97.3 F L 08/07/23 07:30 Pulse 58 L 08/07/23 07:30 Resp 16 08/07/23 07:35 BP 150/71 08/07/23 07:30 Pulse Ox 91 L 08/07/23 06:00 FiO2 Intake & Output 08/06/23 08/07/23 08/07/23 18:59 06:59 18:59 Intake Total 450 260 Output Total 120 775 Balance 330 -515 Weight 90.6 kg Intake: IV 450 260 ACETAMINOPHEN IV (For NPO 100 ) 1,000 mg In Empty Bag 1 bag @ 400 mls/hr IVPB ONCE ONE Rx#:[id number] Sodium Chloride 0.9% 1, 150 260 000 ml @ 50 mls/hr IV . Q20H ANANTH Rx#:[id number] ceFAZolin 2 gm In Sodium 50 Chloride 0.9% 50 ml @ 100 mls/hr IVPB ONCE PRN Rx# :[id number] Output: Urine 120 775 Other: Voiding Method External Catheter External Catheter - Exam GENERAL EXAM: Alert, 82-year-old obese white female, lying supine, with TVP with right femoral access, comfortable in no apparent distress. The patient is currently on room air oxygen. She is calm and comfortable. No signs of any respite distress at this point in time. HEAD: Normocephalic and atraumatic EYES: Normal reaction of pupils, equal size. NOSE: Clear with pink turbinates. THROAT: No erythema or exudates. NECK: No masses, no JVD. CHEST: No chest wall deformity. LUNGS: Equal air entry with no crackles, wheeze, rhonchi or dullness. On room air. No conversational dyspnea or accessory muscle use.. The patient has a pacemaker pocket over the left anterior chest area. CVS: S1 and S2 normal with no audible murmur, regular rhythm. No extra heart sounds Abdominal exam revealed normal bowel sounds. The abdomen was soft, non-tender, and without masses, organomegaly, or appreciable enlargement of the abdominal aorta. SPINE: No scoliosis or deformity SKIN: No rashes CENTRAL NERVOUS SYSTEM: No focal deficits, tone is normal in all 4 extremities. EXTREMITIES: There is no peripheral edema, clubbing, or cyanosis. Peripheral pulses are intact. Right femoral access site clean and dry. No hematoma. - Labs CBC & Chem 7: 08/07/23 04:00 08/07/23 04:00 Labs: Abnormal Lab Results - Last 24 Hours (Table) 08/06/23 08/06/23 08/07/23 Range/Units 13:27 20:16 04:00 WBC 10.9 H (3.8-10.6) k/uL RBC 3.39 L (3.80-5.40) m/uL Hgb 10.3 L (11.4-16.0) gm/dL Hct 32.8 L (34.0-46.0) % Neutrophils # 8.4 H (1.3-7.7) k/uL Sodium (137-145) mmol/L Carbon Dioxide (22-30) mmol/L BUN (7-17) mg/dL Creatinine (0.52-1.04) mg/dL Glucose (74-99) mg/dL POC Glucose (mg/dL) 123 H 247 H (70-110) mg/dL Calcium (8.4-10.2) mg/dL 08/07/23 08/07/23 Range/Units 04:00 06:47 WBC (3.8-10.6) k/uL RBC (3.80-5.40) m/uL Hgb (11.4-16.0) gm/dL Hct (34.0-46.0) % Neutrophils # (1.3-7.7) k/uL Sodium 135 L (137-145) mmol/L Carbon Dioxide 20 L (22-30) mmol/L BUN 21 H (7-17) mg/dL Creatinine 1.37 H (0.52-1.04) mg/dL Glucose 137 H (74-99) mg/dL POC Glucose (mg/dL) 126 H (70-110) mg/dL Calcium 8.3 L (8.4-10.2) mg/dL Assessment and Plan Assessment: Syncope most likely of a cardiac in nature. This is a cardiac syncope as the patient was severely bradycardic at the time of admission and the patient is status post insertion of a right femoral temporary transvenous pacemaker 08/05/2023. Patient did have recorded pauses while admitted to the cardiac stepdown unit, longest being 8 seconds. Patient is post dual-chamber pacemaker insertion without any complications. Sinus bradycardia with first-degree AV block, improved and the patient was restarted back on her beta-blockers Recent history of atrial fibrillation, was placed on a combination of atenolol, flecainide, and Eliquis at outside facility. This was a new onset atrial fibrillation that occurred at a recent hospitalization at [facility]. Recent history of diverticulitis with perforated diverticulum, reportedly treated conservatively at [facility], discharged less than 24 hours before presenting to our emergency room with questionable subsequent syncopal event. She continues on Augmentin. Diabetes mellitus, type II History of hyperlipidemia Chronic kidney disease, stage III Anemia of chronic disease, secondary to above, hemoglobin stable Obesity, with a BMI of 34.2 kg/m Plan: Patient is currently on room air oxygen Patient is hemodynamically stable Patient is post dual-chamber pacemaker insertion Atenolol was restarted Continue flecainide Continue anticoagulation with [employer] on the case Continue Augmentin IV fluids with normal saline at rate of 50 cc an hour Continue Lipitor Insulin sliding scale coverage No signs of any abdominal tenderness at this point in time. Will continue to follow. Possible discharge home today.
--- NOTE | 2023-08-07 13:20 | PN ---
PROGRESS NOTE This is an 82-year-old lady who I saw earlier today in the hospital, came to hospital with syncope. Has history of paroxysmal atrial fibrillation diagnosed recently. When I evaluated her, she did not have any episodes of bradycardia. I received a phone call around 4:45 this evening from a nurse on the floor stating that telemetry has noted multiple sinus pauses that lasted 8.2 seconds, 7.8 seconds, and 4.9 seconds. Due to this, I am advising the patient to undergo temporary transvenous pacemaker. MMODL / IJN: [id number] /
--- NOTE | 2023-08-07 13:27 | PCN ---
PROCEDURE NOTE INDICATIONS: Syncope secondary to asystole with multiple pauses, the longest of which was 8.6 seconds. PROCEDURE NOTE: After obtaining informed consent, temporary transvenous pacemaker was performed via the right femoral vein. Femoral venous access was obtained using Seldinger technique, 6- Sudanese sheath was placed. Pacemaker wire was floated into the right ventricle under fluoroscopic guidance. Adequate pacing and sensing thresholds were obtained and the procedure was completed uneventfully. [facility]. I am going to ask Dr. Morse to perform a permanent pacemaker. We will obtain a 2D echo to document her LV function prior and we do not have any records from [place] at this time. MMODL / IJN: [id number] /
== END 2023-08-07 13:53 | disposition home or self-care (01) | DRG 243 ==
LOC: EC 12:30 → 6NMEDSUR 13:28 → 2SICU 08-05 17:47
PROVIDERS: ADMIT Internal Medicine; ATTEND Internal Medicine
PROC: 5A1223Z Performance of Cardiac Pacing, Continuous (ICD-10-PCS; 2023-08-05)
PROC: 02H63JZ Insertion of Pacemaker Lead into Right Atrium, Percutaneous Approach (ICD-10-PCS; 2023-08-06)
PROC: 4A10X4Z Monitoring of Central Nervous Electrical Activity, External Approach (ICD-10-PCS; 2023-08-06)
PROC: 02HK3JZ Insertion of Pacemaker Lead into Right Ventricle, Percutaneous Approach (ICD-10-PCS; 2023-08-06)
PROC: 0JH606Z Insertion of Pacemaker, Dual Chamber into Chest Subcutaneous Tissue and Fascia, Open Approach (ICD-10-PCS; principal; 2023-08-06 08:30)
DX: I44.0 Atrioventricular block, first degree (principal); E87.1 Hypo-osmolality and hyponatremia; N17.9 Acute kidney failure, unspecified; K57.80 Diverticulitis of intestine, part unspecified, with perforation and abscess without bleeding; I48.0 Paroxysmal atrial fibrillation; I12.9 Hypertensive chronic kidney disease with stage 1 through stage 4 chronic kidney disease, or unspecified chronic kidney disease; N18.32 Chronic kidney disease, stage 3b; E78.5 Hyperlipidemia, unspecified; Z68.34 Body mass index [BMI] 34.0-34.9, adult; E66.9 Obesity, unspecified; I45.5 Other specified heart block; E11.65 Type 2 diabetes mellitus with hyperglycemia; I49.5 Sick sinus syndrome; R50.9 Fever, unspecified; R74.8 Abnormal levels of other serum enzymes; D63.1 Anemia in chronic kidney disease; R01.1 Cardiac murmur, unspecified; I08.3 Combined rheumatic disorders of mitral, aortic and tricuspid valves; E11.22 Type 2 diabetes mellitus with diabetic chronic kidney disease; E86.1 Hypovolemia; Z66 Do not resuscitate; K21.9 Gastro-esophageal reflux disease without esophagitis; Z79.01 Long term (current) use of anticoagulants; Z79.84 Long term (current) use of oral hypoglycemic drugs; Z79.899 Other long term (current) drug therapy; Z96.619 Presence of unspecified artificial shoulder joint
CPT/HCPCS: 33208; 33210; 36415; 70450; 71045; 71046; 80048; 80053; 83735; 83880; 84443; 84484; 85025; 85027; 85610; 85730; 93005; 93306; 95816; 99291

== ENCOUNTER 2024-02-04 12:30 | Emergency (ER) | payer MEDICARE ==
--- NOTE | 2024-02-04 15:13 | CT ---
EXAMINATION TYPE: CT brain natty delacruz DATE OF EXAM: 02/04/2024 COMPARISON: HISTORY: Fall on thinners x 1 week [address] Hip pain[address] DLP: 1382.1 mGycm Automated exposure control for dose reduction was used. TECHNIQUE: CT scan of the head and cervical spine are performed without contrast. Findings: Head CT: Ventricles, basal cisterns and sulci over convexities within normal limits and there is no mass, mass effect or shift of midline structures. No abnormal density is seen throughout the brain parenchyma and there is no acute intra or extra-axia l hemorrhage. Posterior fossa including the brainstem, fourth ventricle and cerebellar pontine angles are grossly n ormal. The intraorbital contents appear normal and symmetric. Visualized paranasal sinuses are well aerated. CT cervical spine: Craniovertebral junction relationships and prevertebral soft tissues are normal. The cervical vertebral segments are normal in height and alignment and there is no fracture subluxati on. There is severe disc space narrowing, discogenic endplate changes of spondylosis at the C6-7 level th ere is mild disc space narrowing at the C3-4, C4-5 and C5-6 levels. There is marked osteoarthritic changes of the facet joints in the mid and lower cervical spine The bony cervical canal is widely patent and there is no bony encroachment of the neural foramina. The paraspinal soft tissues unremarkable. IMPRESSION: 1. Head CT: No acute bleed or mass effect. 2. CT cervical spine: No acute trauma. Advanced degenerative disc disease and arthritis of the facet joints, unchanged compared to previous [facility], Workstation: [facility], 02/04/2024 3:10 PM
--- NOTE | 2024-02-04 15:42 | XR ---
Chest and right ribs. HISTORY: Fall and chest pain. COMPARISON: None. TECHNIQUE: 5 views of the right ribs and chest are obtained. FINDINGS: The lungs are clear. Heart and pulmonary vasculature are normal. There is no pleural effusion or pneumothorax. The right ribs and the osseous structures are intact. There are no rib fractures. There is a reverse right shoulder prosthesis. There is a 2-lead cardiac pacemaker. IMPRESSION: 1. No acute cardiopulmonary disease. 2. No right rib fractures. [facility], Workstation: [facility], 02/04/2024 3:40 PM
--- NOTE | 2024-02-04 15:46 | XR ---
EXAMINATION TYPE: XR Hip LT and AP Pelvis DATE OF EXAM: 02/04/2024 COMPARISON: NONE HISTORY: Fall TECHNIQUE: A single AP view of the pelvis is obtained. Two views of the left hip are obtained. FINDINGS: There is no acute fracture/dislocation evident in the pelvis. The hip and sacroiliac join ts appear symmetric and unremarkable. The overlying soft tissue appears unremarkable. Two views of left hip show no acute fracture or dislocation. No focal lytic or sclerotic lesion seen in the proximal left femur. The overlying soft tissue is unremarkable. IMPRESSION: There is no acute fracture or dislocation in the pelvis or left hip. [facility], , 02/04/2024 3:44 PM
[2024-02-04 16:00] VITALS: RESP 18
--- NOTE | 2024-02-04 16:17 | ED ---
Fall HPI - General Chief Complaint: Fall Stated Complaint: Fall/hit head/body sore/on thinners Time Seen by Provider: 02/04/24 16:17 Source: patient, RN notes reviewed Mode of arrival: ambulatory Limitations: no limitations - History of Present Illness Initial Comments: 83-year-old female presented to the ER with a chief complaint of a fall. Patient states 2 days ago she was carrying groceries into her home when she accidentally lost her balance causing her to fall backwards. Patient does report head injury and takes Eliquis. Patient denies loss of consciousness. Patient also is reporting pain to right side of her ribs and left hip. She has been taking [id number] Tylenol for pain control. She denies any dizziness, lightheadedness chest pain or shortness of breath prior to fall. Patient sent here by urgent care for further evaluation. No other injuries or complaints. - Related Data Home Medications Medication Instructions Recorded Confirmed Atorvastatin [Lipitor] 40 mg PO HS 03/19/21 02/04/24 Ergocalciferol [Vitamin D2 (1250 1,250 mcg PO Q14D 03/19/21 02/04/24 Mcg = 68128 Iu)] Escitalopram [Lexapro] 10 mg PO HS 03/19/21 02/04/24 Ezetimibe [Zetia] 10 mg PO DAILY 03/19/21 02/04/24 allopurinoL [Zyloprim] 100 mg PO DAILY 03/19/21 02/04/24 calcitrioL 0.25 mcg PO Q48H 03/19/21 02/04/24 glipiZIDE [Glucotrol] 5 mg PO BID 03/19/21 02/04/24 rOPINIRole HCL [Requip] 4 mg PO HS 03/19/21 02/04/24 Apixaban [Eliquis] 2.5 mg PO BID 08/04/23 02/04/24 Zinc Gluconate [Zinc] 50 mg PO DAILY 08/04/23 02/04/24 atenoloL [Tenormin] 25 mg PO DAILY 08/04/23 02/04/24 Furosemide [Lasix] 40 mg PO TUTHSA 02/04/24 02/04/24 Clark-3/Dha/Epa/Fish Oil [Fish Oil 1 cap PO DAILY 02/04/24 02/04/24 1,000 mg Softgel] Sodium Bicarbonate Tab 650 mg PO BID 02/04/24 02/04/24 amLODIPine [Norvasc] 5 mg PO DAILY 02/04/24 02/04/24 Previous Rx's Medication Instructions Recorded Flecainide [Tambocor] 50 mg PO Q12HR #60 tab 08/07/23 Allergies Allergy/AdvReac Type Severity Reaction Status Date / Time No Known Allergies Allergy Verified 02/04/24 14:53 Review of Systems ROS Statement: Those systems with pertinent positive or pertinent negative responses have been documented in the HPI. ROS Other: All systems not noted in ROS Statement are negative. Past Medical History Past Medical History: Atrial Fibrillation, Diabetes Mellitus, Hypertension, Renal Disease History of Any Multi-Drug Resistant Organisms: None Reported Past Surgical History: Cholecystectomy, Orthopedic Surgery Additional Past Surgical History / Comment(s): toes, total shoulder arthroplasty, ankle fracture/rods Past Anesthesia/Blood Transfusion Reactions: No Reported Reaction Past Psychological History: No Psychological Hx Reported Smoking Status: Never smoker Past Alcohol Use History: Daily Past Drug Use History: None Reported General Exam Limitations: no limitations General appearance: alert, in no apparent distress Head exam: Present: atraumatic, normocephalic, normal inspection Eye exam: Present: normal appearance, PERRL, EOMI. Absent: scleral icterus, conjunctival injection, periorbital swelling Pupils: Present: normal accommodation ENT exam: Present: normal exam, normal oropharynx, mucous membranes moist, TM's normal bilaterally Neck exam: Present: normal inspection. Absent: tenderness, meningismus, l ymphadenopathy Respiratory exam: Present: normal lung sounds bilaterally, chest wall tenderness (Right anterior ribs). Absent: respiratory distress, wheezes, rales, rhonchi, stridor Cardiovascular Exam: Present: regular rate, irregular rhythm, normal heart sounds. Absent: systolic murmur, diastolic murmur, rubs, gallop, clicks Extremities exam: Present: normal inspection, full ROM, normal capillary refill, other (Contusion to left buttock.). Absent: tenderness, pedal edema, joint swelling, calf tenderness Back exam: Present: normal inspection Neurological exam: Present: alert, oriented X3, CN II-XII intact Skin exam: Present: warm, dry, intact, normal color. Absent: rash Course Vital Signs 02/04/24 02/04/24 02/04/24 12:32 15:59 16:35 Temperature 98 F 97.9 F 98.0 F Pulse Rate 55 L 53 L 60 Respiratory 20 18 18 Rate Blood Pressure 184/68 165/82 160/76 O2 Sat by Pulse 99 99 99 Oximetry Medical Decision Making - Medical Decision Making Was pt. sent in by a medical professional or institution (, PA, RAILROAD MAINTENANCE CLERK, urgent care, hospital, or shelter...) When possible be specific @ -No Did you speak to anyone other than the patient for history (EMS, parent, family, police, friend...)? What history was obtained from this source @ -No Did you review nursing and triage notes (agree or disagree)? Why? @ -I reviewed and agree with nursing and triage notes Were old charts reviewed (outside hosp., previous admission, EMS record, old EKG, old radiological studies, urgent care reports/EKG's, shelter records)? Report findings @ -No old charts were reviewed Differential Diagnosis (chest pain, altered mental status, abdominal pain women, abdominal pain men, vaginal bleeding, weakness, fever, dyspnea, syncope, headache, dizziness, GI bleed, back pain, seizure, CVA, palpatations, mental health, musculoskeletal)? @ -Fracture, dislocation, contusion, hematoma, intracranial hemorrhage, concussion, abrasion, laceration this list does not like to be all-inclusive EKG interpreted by me (3pts min.). @ -None done X-rays interpreted by me (1pt min.). @ -Right ribs AP chest x-ray negative for acute fractures or dislocations. No acute cardiopulmonary process. Left hip x-ray negative for acute process. CT interpreted by me (1pt min.). @ -None done U/S interpreted by me (1pt. min.). @ -None done What testing was considered but not performed or refused? (CT, X-rays, U/S, labs)? Why? @ -None What meds were considered but not given or refused? Why? @ -Patient refused analgesic medications. Did you discuss the management of the patient with other professionals (professionals i.e. , PA, RAILROAD MAINTENANCE CLERK, lab, RT, psych nurse, social work manager, pump stitcher, teacher, financial aids officer, case mgr)? Give summary @ -No Was smoking cessation discussed for >3mins.? @ -No Was critical care preformed (if so, how long)? @ -No Were there social determinants of health that impacted care today? How? (Homelessness, low income, unemployed, alcoholism, drug addiction, transportation, low edu. Level, literacy, decrease access to med. care, residential, rehab)? @ -No Was there de-escalation of care discussed even if they declined (Discuss DNR or withdrawal of care, Hospice)? DNR status @ -No What co-morbidities impacted this encounter? (DM, HTN, Smoking, COPD, CAD, Cancer, CVA, ARF, Chemo, Hep., AIDS, mental health diagnosis, sleep apnea, morbid obesity)? @ -Atrial fibrillation on Eliquis Was patient admitted / discharged? Hospital course, mention meds given and route, prescriptions, significant lab abnormalities, going to OR and other pertinent info. @ -Discharged. 83-year-old female presented to ER with a chief complaint of a fall. History and physical exam completed. Vitals within the limits. Patient in no signs of acute distress. No acute neurological findings on exam. Bilateral upper and lower extremities neurovascular intact. There is tenderness to right anterior ribs. No paradoxical chest wall motions. No overlying skin changes to ribs. Lung sounds throughout all daily. There is a contusion to left buttock. Patient freely moving all extremities. CT will be obtained due to head injury and on blood thinning medications. CT negative. X-rays of ribs and left hip are also negative.Patient refused analgesic medications. Due to concern of rib contusion patient will be discharged with an incentive spirometer. I advised [id number] Tylenol for pain control. Strict return parameters were discussed. Patient discharged in stable condition with follow- up to PCP. Patient verbally expressed understanding and agreement with care plan. Case discussed with the attending, Dr. Styles. Undiagnosed new problem with uncertain prognosis? @ -No Drug Therapy requiring intensive monitoring for toxicity (Heparin, Nitro, Insulin, Cardizem)? @ -No Were any procedures done? @ -No Diagnosis/symptom? @ -Fall/contusion Acute, or Chronic, or Acute on Chronic? @ -Acute Uncomplicated (without systemic symptoms) or Complicated (systemic symptoms)? @ -Uncomplicated Side effects of treatment? @ -No Exacerbation, Progression, or Severe Exacerbation? @ -No Poses a threat to life or bodily function? How? (Chest pain, USA, ME, pneumonia, PE, COPD, DKA, ARF, appy, cholecystitis, CVA, Diverticulitis, Homicidal, Suicidal, threat to staff... and all critical care pts) @ -Yes, a fall on blood thinning medications can lead to brain bleeds which can be life-threatening. - Radiology Data Radiology results: report reviewed, image reviewed Disposition Clinical Impression: Fall, Contusion Disposition: HOME SELF-CARE Condition: Stable Instructions (If sedation given, give patient instructions): Fall Prevention for Older Adults (ED) Additional Instructions: You may take [id number] Tylenol for pain control. Follow-up with PCP in the next 1 to 2 days. Return to the ER for any new or worsening concerns. Is patient prescribed a controlled substance at d/c from ED?: No Referrals: Nonstaff,Physician [Primary Care Provider] - 1-2 days Time of Disposition: 16:17
[2024-02-04 16:36] VITALS: BP 160/76; PULSE 60; TEMP 98
== END 2024-02-04 16:36 | disposition home or self-care (01) ==
LOC: EC 12:30
CPT/HCPCS: 70450; 72125; 73502; 99284